=== PATIENT | female | born 1975 | race Caucasian/White ===

== ENCOUNTER → 2016-11-29 | Outpatient (CLI) | payer BC, OTHER ==
[~2016-11-29] MED LIST: 'PARAFON FORTE500 M1 PO; AMLODIPINE BES2.5 MG PO; AMOXIL500 MG PO; ANAPROX DS550 MG PO; ATIVAN1 MG PO; BACTRIM DS 8001 TA1 PO; CATAFLAM50 MG PO; CEPHALEXIN500 M1 PO; CIPRO250 MG PO; CIPRODEX 0.3%-7.5 ML OT; CIPROFLOXACIN500 MG PO; CLARITIN10 MG PO; DAYPRO600 M1 PO; FLEXERIL10 MG PO; FLONASE 0.05% 121 EA NAS; HYDROCODONE BIT1 T11 PO; HYDROCODONE BIT1 T20 PO; IBU800 MG PO; LOPRESSOR25 MG PO; MACROBID100 M1 PO; MEDROL DOSEPAK4 MG PO; MOTRIN800 MG PO; NAPROSYN500 MG PO; NORCO 5-325 TA1 EACH PO; OMEPRAZOLE20 M2 PO; Orphenadrine C100 MG PO; PEPCID20 MG PO; PERCOCET 325 MG1 TA2 PO; PHENERGAN25 M1 PO; PRILOSEC20 MG PO; PRINIVIL5 M1 PO; ROBAFEN AC PO; ROBAXIN500 MG PO; ROBAXIN750 MG PO; ROBITUSSIN AC 10 MG/ PO; SYNTHROID0.05 MG PO; SYNTHROID0.1 MG PO; Synthroid,Lev100 MCG PO; VIBRAMYCIN100 MG PO; VICODIN 5-3001 EACH PO; VICODIN 5/500 505 MG PO; VITAMIN B121000 MC1 PO; VITAMIN D50000 I3 PO; VOLTAREN50 M1 PO; WYMOX500 MG PO; ZANTAC150 MG PO; ZITHROMAX Z PA250 MG PO
== END | disposition home or self-care (01) ==
LOC: MRI 11:00
DX: M25.512 Pain in left shoulder (principal); G89.29 Other chronic pain

== ENCOUNTER → 2016-12-03 | Outpatient (CLI) | payer BC, OTHER | END | disposition home or self-care (01) | LOC: US 16:35 | DX: E01.0 Iodine-deficiency related diffuse (endemic) goiter (principal) ==

== ENCOUNTER → 2016-12-08 | Outpatient (CLI) | payer BC, OTHER ==
[2016-12-08 07:20] LABS: BASO # 0.1 10*3/uL (0.0-0.1); BASO % 1.1 % (0.0-1.0); EOS # 0.2 10*3/uL (0.0-0.4); EOS % 3.4 % (1.0-4.0); HEMATOCRIT 40.8 % (37.0-47.0); HEMOGLOBIN 13.5 g/dl (12.0-16.0); LYMPH # 2.5 10*3/uL (1.3-4.4); LYMPH % 44.1 % (27.0-41.0); MEAN CELL VOLUME 91.1 fl (81.0-99.0); MEAN CORPUSCULAR HGB 30.1 pg (27.0-31.0); MEAN CORPUSCULAR HGB CONC 33.1 g/dl (33.0-37.0); MEAN PLATELET VOLUME 10.3 fl (9.6-12.3); MONO # 0.5 10*3/uL (0.1-1.0); MONO % 8.8 % (3.0-9.0); NEUT # 2.4 10*3/uL (2.3-7.9); NEUT % 42.4 % (47.0-73.0); PLATELET COUNT AUTOMATED 269 10*3/uL (130-400); RED BLOOD COUNT 4.48 10*6/uL (4.10-5.10); RED CELL DISTRI WIDTH 12.4 % (0-14.5); WHITE BLOOD COUNT 5.6 10*3/uL (4.8-10.8)
[2016-12-08 08:05] LABS: ALBUMIN 3.7 gm/dl (3.1-4.5); ALKALINE PHOSPHATASE 78 U/L (45-117); BILIRUBIN, TOTAL 0.4 mg/dl (0.2-1.0); BUN 19 mg/dl (7-24); CARBON DIOXIDE 29 mmol/L (21-32); CHLORIDE 107 mmol/L (98-107); CHOLESTEROL 172 mg/dL (<200); EST GLOM FILT AFRICAN AMERICAN > 60 ml/min; GLUCOSE 91 mg/dL (65-99); HDL CHOLESTEROL 61 mg/dl (40-60); LDL CHOLESTEROL 95 mg/dL (9-159); POTASSIUM 4.1 mmol/L (3.5-5.1); SGOT/AST 15 IU/L (3-35); SGPT/ALT 19 U/L (12-78); SODIUM 143 mmol/L (136-145); T3 UPTAKE 37 % (31-39); THYROXINE (T4) TOTAL 9.2 ug/dl (4.8-13.9); TOTAL PROTEIN 7.3 gm/dL (6.4-8.2); TRIGLYCERIDES 81 mg/dl (<150); VLDL CHOLESTEROL 16 mg/dL (6-40)
[2016-12-08 08:41] LABS: VITAMIN D, 25-HYDROXY 26.8 ng/mL (30-100)
[2016-12-08 08:42] LABS: FOLIC ACID 13.54 ng/mL (>5.38)
== END | disposition home or self-care (01) ==
LOC: LAB 06:37
PROVIDERS: Internal Medicine
DX: I47.1 Supraventricular tachycardia (principal); I10 Essential (primary) hypertension; E53.8 Deficiency of other specified B group vitamins

== ENCOUNTER → 2017-05-15 | Outpatient (CLI) | payer OTHER | END | disposition home or self-care (01) | LOC: RAD 14:53 | DX: M25.511 Pain in right shoulder (principal) ==

== ENCOUNTER 2017-08-28 22:00 | Emergency (ER) | payer OTHER ==
[~2017-08-28] VITALS: Ht 180.3 cm; Wt 99.8 kg
[2017-08-28 23:09] LABS: BASO # 0.1 10*3/uL (0.0-0.1); BASO % 0.7 % (0.0-1.0); EOS # 0.2 10*3/uL (0.0-0.4); EOS % 3.6 % (1.0-4.0); HEMATOCRIT 37.9 % (37.0-47.0); LYMPH # 2.4 10*3/uL (1.3-4.4); LYMPH % 35.9 % (27.0-41.0); MEAN CELL VOLUME 92.2 fl (81.0-99.0); MEAN CORPUSCULAR HGB 31.6 pg (27.0-31.0); MEAN CORPUSCULAR HGB CONC 34.3 g/dl (33.0-37.0); MEAN PLATELET VOLUME 10.3 fl (9.6-12.3); MONO # 0.7 10*3/uL (0.1-1.0); MONO % 10.7 % (3.0-9.0); NEUT # 3.3 10*3/uL (2.3-7.9); NEUT % 48.8 % (47.0-73.0); PLATELET COUNT AUTOMATED 279 10*3/uL (130-400); RED BLOOD COUNT 4.11 10*6/uL (4.10-5.10); RED CELL DISTRI WIDTH 13.2 % (0-14.5); WHITE BLOOD COUNT 6.8 10*3/uL (4.8-10.8)
[2017-08-28 23:14] LABS: ALBUMIN 3.9 gm/dl (3.1-4.5); ALKALINE PHOSPHATASE 87 U/L (45-117); BUN 21 mg/dl (7-24); CHLORIDE 105 mmol/L (98-107); CREATININE 0.95 mg/dL (0.55-1.02); POTASSIUM 4.1 mmol/L (3.5-5.1); SGOT/AST 15 IU/L (3-35); SGPT/ALT 26 U/L (12-78); SODIUM 141 mmol/L (136-145); TOTAL PROTEIN 7.3 gm/dL (6.4-8.2)
[2017-08-28 23:15] LABS: TROPONIN I < 0.015 ng/ml (<0.045)
[2017-08-28 23:38] LABS: BILIRUBIN NEGATIVE (NEGATIVE); BLOOD NEGATIVE (NEGATIVE); CLARITY CLEAR (CLEAR); COLOR YELLOW (YELLOW); GLUCOSE NEGATIVE (NEGATIVE); KETONE NEGATIVE (NEGATIVE); LEUKO ESTERASE 2+ (NEGATIVE); NITRITE NEGATIVE (NEGATIVE); SPECIFIC GRAVITY <= 1.005 (1.005-1.030); UROBILINOGEN 0.2 E.U./dl (0.2-1.0)
[2017-08-28] MEDS ORDERED: KETOROLAC10 MG PO (23:41)
[2017-08-28 23:51] VITALS: BP 133/79
== END 2017-08-29 00:12 | disposition home or self-care (01) ==
LOC: ED 22:00
PROVIDERS: Nurse Practitioner
DX: R09.1 Pleurisy (principal); Z98.890 Other specified postprocedural states; Z90.710 Acquired absence of both cervix and uterus; Z79.899 Other long term (current) drug therapy

== ENCOUNTER → 2017-11-01 | Day surgery (SDC) | payer OTHER ==
[~2017-11-01] VITALS: Ht 180.3 cm; Wt 102.1 kg
[~2017-11-01] MED LIST changes: +KETOROLAC10 MG PO; +LINZESS145 MC1 PO; +REGLAN5 MG PO; +TYLENOL325 M1 PO
--- NOTE | ~2017-11-01 | O ---
[place], [place] OPERATIVE NOTE NAME: LEONA ARCHULETA UNIT #: [id number] ROOM: DOCTOR: BAKARI RODRIGUEZ MD BIRTHDATE: [birth year] DOS: 11/01/2017 GASTROENDOSCOPIC REPORT HISTORY OF PRESENT ILLNESS: A 42-year-old patient, who presented with chief complaint of concern about colonic screening with a young father with colonic carcinoma. PAST MEDICAL HISTORY: Status post hypothyroid history post-cholecystectomy. PAST SURGICAL HISTORY: Cardiac ablation, hysterectomy, cholecystectomy, and thyroid resection. FAMILY HISTORY: Father with colonic carcinoma and gastric carcinoma. SOCIAL HISTORY: Nonsmoker, rare alcohol consumer. PROCEDURE: Today's procedure part of investigation of dyspepsia and strong family history of colonic carcinoma and constipation for bowel movement once per week is EGD and colonoscopy. PREMEDICATION: Versed and Diprivan. SCOPE: Olympus forward-viewing gastroscope Q10 video. REPORT: After putting the patient in left lateral position and application of lubricant to the scope, the scope was introduced. Thereafter, under direct visualization, I advanced through the length of esophagus without difficulty. Esophagus, cervical, thoracic were distally carefully examined. Gastric pouch was entered. Bile reflux gastritis was noticed. This is a large volume of bile matter was suctioned out. Antrum was biopsied for H. pylori. Duodenal bulb, second and third part within normal limits. Scope was withdrawn along the lesser curvature. Air was suctioned out. The patient was extubated, tolerated procedure well. IMPRESSION: Bile reflux gastritis. Omeprazole 20 mg 1 every day, Reglan 2.5 mg half an hour before dinner, antireflux measures. PLAN AND DISCUSSION: I will proceed with colonoscopic evaluation for change in bowel habit to 1 BM per week. GASTROENDOSCOPIC REPORT The patient has presented with chief complaint of constipation. PROCEDURE: Today's procedure part of investigation is colonoscopy plus polypectomy x 2. [place], [place] OPERATIVE NOTE NAME: LEOAN ARCHULETA UNIT #: [id number] ROOM: DOCTOR: BAKARI RODRIGUEZ MD BIRTHDATE: [birth year] PREMEDICATION: Versed and Diprivan. SCOPE: Olympus folding colonoscope 10L video. REPORT: After putting the patient in left lateral position and application of lubricant to rectal pouch and digital examination, scope was introduced. Thereafter, under direct visualization, I advanced through the length of colon without difficulty. Base of the cecum explored. There is some retained stool in the ascending colon. Scope was gradually withdrawn back to the sigmoid colon. Two sessile polypoid lesion with piecemeal polypectomy removed. Air was suctioned out. The patient was extubated, tolerated procedure well. IMPRESSION: Sessile colonic polyp, sigmoid colon, status post piecemeal polypectomy. PLAN AND DISCUSSION: This patient has history of severe constipation. I am going try to see the etiology, which most likely has to do with chronic idiopathic constipation. I will start her on Linzess 72 mcg once a day, to see how she responds. If she does not, then we are going to elevate it to 145 mcg once a day, adjustment of diet with high fiber fruit diet. ACTIVITY: Ad terri. FOLLOWUP: Routinely with you in office, p.r.n. visit with us in GI Clinic. I thank you very much indeed for your kind referral. BAKARI RODRIGUEZ MD CM:OPRECORD:OPERATIVE NOTE [id number] [id number] CHARLA RODRIGUEZ MD 11/01/17 1457 interface
[2017-11-01 10:34] VITALS: BP 126/81
[2017-11-01 11:15] VITALS: BP 91/50
[2017-11-01 11:58] VITALS: BP 112/72
== END | disposition home or self-care (01) ==
LOC: SDC 10-11 08:07
DX: K63.5 Polyp of colon (principal); K29.50 Unspecified chronic gastritis without bleeding; Z80.0 Family history of malignant neoplasm of digestive organs; Z90.49 Acquired absence of other specified parts of digestive tract; Z90.710 Acquired absence of both cervix and uterus; E03.9 Hypothyroidism, unspecified; K59.04 Chronic idiopathic constipation; K21.9 Gastro-esophageal reflux disease without esophagitis; Z82.49 Family history of ischemic heart disease and other diseases of the circulatory system

== ENCOUNTER → 2017-12-09 | Outpatient (CLI) | payer OTHER ==
[2017-12-09 13:19] LABS: BASO % 0.7 % (0.0-1.0); EOS # 0.1 10*3/uL (0.0-0.4); EOS % 1.4 % (1.0-4.0); HEMATOCRIT 41.5 % (37.0-47.0); HEMOGLOBIN 14.1 g/dl (12.0-16.0); LYMPH # 1.7 10*3/uL (1.3-4.4); LYMPH % 29.6 % (27.0-41.0); MEAN CORPUSCULAR HGB 31.6 pg (27.0-31.0); MEAN PLATELET VOLUME 9.9 fl (9.6-12.3); MONO # 0.6 10*3/uL (0.1-1.0); NEUT # 3.4 10*3/uL (2.3-7.9); NEUT % 58.1 % (47.0-73.0); PLATELET COUNT AUTOMATED 297 10*3/uL (130-400); RED BLOOD COUNT 4.46 10*6/uL (4.10-5.10); RED CELL DISTRI WIDTH 12.5 % (0-14.5); WHITE BLOOD COUNT 5.8 10*3/uL (4.8-10.8)
[2017-12-09 13:47] LABS: ALBUMIN 4.2 gm/dl (3.1-4.5); ALKALINE PHOSPHATASE 80 U/L (45-117); BUN 17 mg/dl (7-24); CHLORIDE 105 mmol/L (98-107); CHOLESTEROL 183 mg/dL (<200); CREATININE 0.91 mg/dL (0.55-1.02); HDL CHOLESTEROL 73 mg/dl (40-60); LDL CHOLESTEROL 102 mg/dL (9-159); SGOT/AST 12 IU/L (3-35); SGPT/ALT 20 U/L (12-78); SODIUM 140 mmol/L (136-145); TOTAL PROTEIN 7.8 gm/dL (6.4-8.2); TRIGLYCERIDES 38 mg/dl (<150); VLDL CHOLESTEROL 8 mg/dL (6-40)
[2017-12-09 14:51] LABS: VITAMIN D, 25-HYDROXY 18.7 ng/mL (30-100)
== END | disposition home or self-care (01) ==
LOC: LAB 12:43
PROVIDERS: Internal Medicine
DX: I10 Essential (primary) hypertension (principal)

== ENCOUNTER → 2018-01-08 | Outpatient (CLI) | payer OTHER | END | disposition home or self-care (01) | LOC: RAD 13:26 | DX: M25.861 Other specified joint disorders, right knee (principal) ==

== ENCOUNTER → 2018-02-10 | Outpatient (CLI) | payer OTHER | END | disposition home or self-care (01) | LOC: MRI 10:00 | DX: M25.861 Other specified joint disorders, right knee (principal) ==

== ENCOUNTER → 2018-03-05 | Outpatient (CLI) | payer OTHER ==
--- NOTE | ~2018-03-05 | EKG ---
[place], [place] ELECTROCARDIOGRAM REPORT NAME: LEONA ARCHULETA UNIT #: [id number] ROOM: DOCTOR: EPIPHANY DRAFT REPORT BIRTHDATE: [birth year] [facility] Test Date: 2018-03-05 Test Time: 15:27:09 Pat Name: LEONA ARCHULETA Department: Room: Gender: F Tailman: : 1975 Requested By: CHARLA NDIAYE Order Number: [id number] Reading MD: Ho Sims MD Measurements Intervals [place] Rate: 82 P: 59 NM: 154 QRS: 10 QRSD: 87 T: -29 QT: 468 QTc: 547 Interpretive Statements Sinus rhythm LAE, consider biatrial enlargement Nonspecific T abnormalities, inferior leads Prolonged QT interval Baseline wander in lead(s) I,III,aVR,aVL,aVF,V1,V2,V3,V4,V5,V6 Electronically Signed On 03-05-2018 15:59:30 PDT by Ho Sims MD CM:EKGRPT:ELECTROCARDIOGRAM REPORT 1527 1559 CHARLA ACEVES DRAFT REPORT CHARLA NDIAYE MD
== END | disposition home or self-care (01) ==
LOC: CARD 15:15
DX: R07.9 Chest pain, unspecified (principal)

== ENCOUNTER → 2018-05-08 | Day surgery (SDC) | payer OTHER ==
[2018-05-06 09:48] LABS: BILIRUBIN NEGATIVE (NEGATIVE); BLOOD TRACE-INTACT (NEGATIVE); CLARITY SL CLOUDY (CLEAR); COLOR YELLOW (YELLOW); GLUCOSE NEGATIVE (NEGATIVE); KETONE NEGATIVE (NEGATIVE); LEUKO ESTERASE 2+ (NEGATIVE); NITRITE NEGATIVE (NEGATIVE); PH 5.5 (5.0-9.0); SPECIFIC GRAVITY 1.025 (1.005-1.030); UROBILINOGEN 0.2 E.U./dl (0.2-1.0)
[2018-05-06 09:56] LABS: BASO # 0.1 10*3/uL (0.0-0.1); EOS # 0.2 10*3/uL (0.0-0.4); EOS % 4.7 % (1.0-4.0); HEMATOCRIT 40.9 % (37.0-47.0); HEMOGLOBIN 13.6 g/dl (12.0-16.0); LYMPH # 1.3 10*3/uL (1.3-4.4); LYMPH % 26.3 % (27.0-41.0); MEAN CELL VOLUME 92.1 fl (81.0-99.0); MEAN CORPUSCULAR HGB 30.6 pg (27.0-31.0); MEAN CORPUSCULAR HGB CONC 33.3 g/dl (33.0-37.0); MEAN PLATELET VOLUME 10.2 fl (9.6-12.3); MONO # 0.5 10*3/uL (0.1-1.0); MONO % 10.4 % (3.0-9.0); NEUT # 2.8 10*3/uL (2.3-7.9); NEUT % 57.4 % (47.0-73.0); PLATELET COUNT AUTOMATED 284 10*3/uL (130-400); RED BLOOD COUNT 4.44 10*6/uL (4.10-5.10); RED CELL DISTRI WIDTH 12.3 % (0-14.5); WHITE BLOOD COUNT 4.9 10*3/uL (4.8-10.8)
[2018-05-06 10:27] LABS: BUN 19 mg/dl (7-24); CHLORIDE 106 mmol/L (98-107); POTASSIUM 3.8 mmol/L (3.5-5.1); SODIUM 140 mmol/L (136-145)
[2018-05-06 10:59] LABS: BACTERIA 3+; EPITHELIAL CELLS 30-40; WBC 51-100 wbc/hpf (0-5)
[~2018-05-08] VITALS: Ht 180.3 cm; Wt 102.1 kg
[2018-05-08] VITALS (9 sets, daily range): BP systolic 101–130; BP diastolic 50–82
[~2018-05-08] MED LIST changes: +XARE15TA PO; +ZOFRAN 4 MG ED2 TAB PO
--- NOTE | ~2018-05-08 | O ---
[place], [place] OPERATIVE NOTE NAME: LEONA ARCHULETA [facility] #: [id number] UNIT #: [id number] ROOM: DOCTOR: ANT NYE DO BIRTHDATE: [birth year] DOS: 05/08/2018 PREOPERATIVE DIAGNOSIS: Right knee posterior loose body. 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 OPERATIVE PROCEDURE: Right knee arthroscopy with debridement of the lateral meniscus and chondroplasty of the lateral femoral condyle and the patella and excision of lateral patellar plica. SURGEON: Ant Nye DO. ACCOUNT INFORMATION CLERK: BENJAMIN Nix and Jovani. ANESTHESIA: GRANT Marie, general LMA intubation. INDICATIONS: The patient is a 43-year-old female with a history of pain and disability about the right knee, unrelieved with conservative care. MRI indicated a loose body bony in nature and was present behind the posterior cruciate ligament. The risks and benefits of the procedure were explained to the patient preoperatively. Preoperative labs and x-rays were obtained. DESCRIPTION OF PROCEDURE: The right knee was marked in the holding room. The patient was brought to the operative suite. The patient was placed supine on the operative table. General anesthetic with LMA intubation was performed. The timeout was performed. The right lower extremity was placed in a leg perez. Right lower extremity was prepped and draped in the usual orthopedic fashion. The area about the medial and lateral parapatellar portals were injected with Marcaine 0.5% with epinephrine. The lateral portal was created using #11 blade followed by blunt trocar and cannula. Medial portal was created using a spinal needle followed by a #11 blade and a blunt trocar. The knee was evaluated in a systematic fashion with the camera laterally. The medial compartment was noted to be intact to probing and visualization with no evidence of meniscus tear or chondral injury. The loose body was attempted to be displaced or it could be grasped, but was unable to be visualized. The notch was identified and evaluated. The anterior cruciate ligament was noted to be intact to probing and anterior drawer test. The lateral compartment was identified and evaluated. There was noted to be a lateral meniscus tear from the posterior half of the meniscus. This was debrided using handheld instrumentation and a full radius resector to remove any remaining debris. There was grade 1 chondromalacia about the lateral femoral condyle. This was gently smoothed using the ArthroCare wand. Again, the loose body was attempted to be displaced and grasped, but this was unsuccessful. The loose body could not be visualized. [place], [place] OPERATIVE NOTE NAME: LEONA ARCHULETA UNIT #: [id number] ROOM: DOCTOR: ANT NYE DO BIRTHDATE: [birth year] Patellofemoral joint was identified and evaluated. There was noted to be a grade 2 chondromalacia of the patella as well as the femoral notch. This was gently debrided using the full radius resector and the Arthrocare wand. There was a lateral patellar plica and this was debrided using the handheld instrumentation and the ArthroCare wand. The instrumentation was switched using the arthroscopy camera medially and instrumentation laterally. All compartments were again identified and evaluated. The medial compartment remained without evidence of pathology. Lateral compartment, grade 1 chondromalacia of the femoral condyle and further debridement was performed of the lateral meniscus. Again, attempts were made to dislodge and grasped the loose body, which appeared to be posterior from the MRI, but this was unsuccessful. Patellofemoral joint was identified and further debridement was performed about the type 2 chondromalacia of the patella. With no further repairable or debridable pathology was present, the knee was copiously irrigated with remainder of lactated Ringer's with epinephrine. The instrumentation was removed. The portals were expressed of any excess fluid. The portals were closed with 3-0 nylon. The knee was injected with Marcaine 0.5% with epinephrine. Xeroform, 4 x 4s, cast padding, ABDs, and WILFRID completed the dressing. The anesthetic was reversed. The patient was extubated and taken to recovery room in satisfactory condition. Sponge and needle count correct. ESTIMATED BLOOD LOSS: None. SPECIMENS: None. DRAINS: None. PACKING: None. COMPLICATIONS: None. FINDINGS: 1. Grade 2 chondromalacia patellofemoral joint. 2. Lateral patellar plica. 3. Lateral meniscus tear. 4. Chondromalacia of the lateral femoral condyle, grade 1. 5. Posterior bony loose body ____. [place], [place] OPERATIVE NOTE NAME: LEONA ARCHULETA UNIT #: [id number] ROOM: DOCTOR: ANT NYE DO BIRTHDATE: [birth year] ANT NYE DO CM:OPRECORD:OPERATIVE NOTE 0912 1059 ANT NYE DO 05/08/18 1431 interface
--- NOTE | ~2018-05-08 | EKG ---
[place], [place] ELECTROCARDIOGRAM REPORT NAME: LEONA ARCHULETA UNIT #: [id number] ROOM: DOCTOR: KETAN DRAFT REPORT BIRTHDATE: [birth year] [facility] Test Date: 2018-05-06 Test Time: 11:08:45 Pat Name: LEONA ARCHULETA Department: Room: Gender: F Form Grader: : 1975 Requested By: ANT WHYTE Order Number: [id number] Reading MD: Measurements Intervals [place] Rate: 87 P: 51 NM: 161 QRS: 10 QRSD: 98 T: 19 QT: 365 QTc: 439 Interpretive Statements Sinus rhythm Consider right atrial enlargement Borderline T abnormalities, anterior leads Compared to ECG 03/05/2018 15:27:09 Prolonged QT interval no longer present T-wave abnormality still present CM:EKGRPT:ELECTROCARDIOGRAM REPORT 1108 0811 ANT ROJAS DRAFT REPORT ANT WHYTE DO
== END | disposition home or self-care (01) ==
LOC: SDC 05-01 10:15
PROVIDERS: Orthopaedic Surgery
DX: S83.281A Other tear of lateral meniscus, current injury, right knee, initial encounter (principal); M94.261 Chondromalacia, right knee; M67.51 Plica syndrome, right knee; K21.9 Gastro-esophageal reflux disease without esophagitis; E07.9 Disorder of thyroid, unspecified; E66.09 Other obesity due to excess calories; Z90.710 Acquired absence of both cervix and uterus; Z90.49 Acquired absence of other specified parts of digestive tract; Z87.19 Personal history of other diseases of the digestive system; Z98.890 Other specified postprocedural states; Z80.0 Family history of malignant neoplasm of digestive organs; Z79.899 Other long term (current) drug therapy; Z68.31 Body mass index [BMI] 31.0-31.9, adult; X58.XXXA Exposure to other specified factors, initial encounter; Y93.89 Activity, other specified; Y92.89 Other specified places as the place of occurrence of the external cause; Y99.8 Other external cause status

== ENCOUNTER 2018-05-15 12:56 | Inpatient (IN) | payer OTHER ==
[~2018-05-15] VITALS: Ht 180.3 cm; Wt 101.7 kg
--- NOTE | ~2018-05-15 | PR ---
[place], [place] PROGRESS NOTE NAME: LEONA ARCHULETA UNIT #: [id number] ROOM: 512 DOCTOR: ZAIDA FREDERICK MD BIRTHDATE: [birth year] DOS: 05/16/2018 SUBJECTIVE: The patient is still having cramping pains in her right leg, otherwise, no new complaints, no increasing shortness of breath. OBJECTIVE: VITAL SIGNS: Blood pressure 109/66, heart rate 81 beats per minute, breathing 20 times per minute, temperature 98 degrees Fahrenheit. GENERAL APPEARANCE: The patient is alert and oriented x 3, in no visible distress. HEENT AND NECK: Exam within normal limits. CARDIOVASCULAR SYSTEM: Heart rate is regular in rate and rhythm. S1 and S2 normally audible. LUNGS: Clear to auscultation. ABDOMEN: Soft, nontender. No obvious organomegaly. Bowel sounds are present. EXTREMITIES: Without significant cyanosis or edema. Some tenderness in the right calf. IMPRESSION: 1. The patient with acute deep vein thrombosis in the right calf after she had right knee arthroscopy on 05/08/2018, more than a week ago. She has deep venous thrombosis involving the right gastrocnemius and popliteal veins and now she is ambulating with the help of crutches. A repeat stat venous Dopplers was performed on the right leg, but results are still not available. I wanted to compare it to patient's deep venous thrombosis from yesterday to see if it is progressing. In that case, she will be started on IV heparin. 2. Right knee arthritis, status post arthroscopy, Dr. Nye following. 3. History of supraventricular tachycardia, status post electrophysiological studies and ablation. 4. Hypothyroidism, treated with levothyroxine. 5. Nausea and vomiting, which is chronic, treated and controlled with metoclopramide. 6. Gastroesophageal reflux disease and esophagitis, asymptomatic with Omeprazole. [place], [place] PROGRESS NOTE NAME: LEONA ARCHULETA UNIT #: [id number] ROOM: 512 DOCTOR: ZAIDA FREDERICK MD BIRTHDATE: [birth year] ZAIDA FREDERICK MD CM:PNTRANS 29 17 ZAIDA FREDERICK MD 05/16/181918 interface
--- NOTE | ~2018-05-15 | PR ---
[place], [place] PROGRESS NOTE [id number] UNIT #: [id number] ROOM: 512 DOCTOR: ZAIDA FREDERICK MD BIRTHDATE: [birth year] DOS: 05/17/2018 SUBJECTIVE: The patient is feeling well, still has some pains in her right calf. OBJECTIVE: VITAL SIGNS: Blood pressure 103/69, heart rate of 80 beats per minute, breathing normally, afebrile. GENERAL APPEARANCE: The patient is alert and oriented x 3, in no visible distress. HEENT AND NECK: Exam within normal limits. CARDIOVASCULAR SYSTEM: Heart rate is regular in rate and rhythm. S1 and S2 normally audible. LUNGS: Clear to auscultation. ABDOMEN: Soft, nontender. No obvious organomegaly. Bowel sounds are present. EXTREMITIES: Without significant cyanosis or edema. IMPRESSION: 1. Right leg deep venous thrombosis with occlusion of the gastrocnemius vein and partial occlusion of the right popliteal vein, not getting any worse on repeat Doppler today, so she will be continued on Xarelto. 2. Right knee arthritis, status post arthroscopy on 05/08/2018. 3. Hypothyroidism, treated with levothyroxine. 4. Nausea, vomiting controlled with metoclopramide. 5. Gastroesophageal reflux disease and esophagitis, asymptomatic with omeprazole. ZAIDA FREDERICK MD CM:PNTRANS 184 18 ZAIDA FREDERICK MD 05/17/182119 interface
--- NOTE | ~2018-05-15 | DS ---
[place], [place] DISCHARGE SUMMARY NAME: LEONA ARCHULETA UNIT #: [id number] ROOM: 512 DOCTOR: ZAIDA FREDERICK MD BIRTHDATE: [birth year] DOS: 05/18/2018 DISCHARGE DIAGNOSES: 1. Acute deep vein thrombosis involving the right gastrocnemius vein and incomplete occlusion of the right popliteal vein. 2. Right knee arthroscopy by Dr. Nye on 05/08/2018. 3. Right knee arthritis. 4. Hypothyroidism. 5. Chronic nausea, vomiting controlled with metoclopramide. 6. Gastroesophageal reflux disease and esophagitis. 7. History of supraventricular tachycardia treated with electrophysiological studies and ablation. 8. Tension type headaches. HOSPITAL COURSE: The patient presently admitted for acute DVT of the right leg as mentioned above and treated with anticoagulation with Xarelto. The high dose of Xarelto will be continued for 21 days as recommended, 15 mg twice a day and then reduced by Dr. Mcgee when she follows up with her next week. Hypothyroidism, treated and replaced with supplements. History of supraventricular tachycardia, now is asymptomatic after ablation. Gastroesophageal reflux disease and esophagitis, asymptomatic with omeprazole. Chronic nausea, vomiting, treated with metoclopramide. Normal serum electrolytes. LABORATORY DATA: Normal CBC. DISCHARGE MANAGEMENT: Tylenol 1000 mg every 8 hours as needed for pain, 200 mg of Colace daily, metoclopramide 5 mg before meals, omeprazole 20 mg daily, Xarelto 15 mg twice a day to complete 20 days, then dose needs to be reduced, levothyroxine 100 mcg daily. Follow up with Dr. Mcgee in a week's time. [place], [place] DISCHARGE SUMMARY NAME: LEONA ARCHULETA UNIT #: [id number] ROOM: 512 DOCTOR: ZAIDA FREDERICK MD BIRTHDATE: [birth year] ZAIDA FREDERICK MD CM:DISCHARG 0 ZAIDA FREDERICK MD 05/19/18211 interface
--- NOTE | ~2018-05-15 | WRIGHTHP ---
[place], [place] PATIENT HISTORY AND PHYSICAL EXAM NAME: LEONA ARCHULETA [facility] #: [id number] UNIT #: [id number] ROOM: 512 DOCTOR: ZAIDA FREDERICK MD BIRTHDATE: [birth year] DOS: 05/15/2018 HISTORY OF PRESENT ILLNESS: A 43-year-old female with a past medical history of: 1. Right knee arthroscopy by Dr. Nye on 05/08/2018. 2. History of recurrent supraventricular tachycardia for which the patient underwent electrophysiological studies and ablation. 3. Hypothyroidism. 4. Tension type headaches. The patient presented to [facility] with swelling and cramps in the right leg and was found to have acute deep vein thrombosis in the right gastrocnemius vein and some nonocclusive thrombus extending into the popliteal vein. The patient was started on Xarelto and admitted to [facility]. No chest pain, no shortness of breath, no GI or urinary symptoms. CT angiogram was negative. SYSTEMS REVIEW: RESPIRATORY: No increasing shortness of breath. GASTROINTESTINAL: No nausea, vomiting, diarrhea or constipation. CARDIOVASCULAR: No chest pains or palpitations. FAMILY HISTORY: Noncontributory. ALLERGIES: No known drug allergies. Unspecified NUT and FISH allergy. HOME MEDICATIONS: Metoclopramide, omeprazole, levothyroxine. PHYSICAL EXAMINATION: GENERAL: Alert and oriented x 3, in no visible distress. HEENT AND NECK: Extraocular movements are intact. Sclerae are anicteric. Oral mucosa is moist and clean. No obvious facial weakness. Neck is supple without any lymphadenopathy. No thyromegaly. No JVD. No carotid arterial bruits. LUNGS: Clear to auscultation. No wheezing. No rhonchi. CARDIOVASCULAR SYSTEM: Heart rate is regular in rate and rhythm. S1 and S2 normally audible. No significant murmur or any other abnormal cardiac sounds. ABDOMEN: Soft, nontender. No obvious organomegaly. Bowel sounds are present. No obvious herniation. EXTREMITIES: Pain and swelling in the right calf. CENTRAL NERVOUS SYSTEM: Alert and oriented x 3. Cranial nerves II-XII are intact. Speech is normal. The patient is able to move all extremities. Normal muscle strength. Deep tendon reflexes are equal on both sides. Plantars were downgoing. LABORATORY DATA: CT angiogram results were normal. D-dimer slightly elevated, acute DVT of the right gastrocnemius and popliteal veins as mentioned above. IMPRESSION: 1. Acute deep venous thrombosis of the right gastrocnemius and popliteal veins as mentioned above. The patient already started on anticoagulation with Xarelto [place], [place] PATIENT HISTORY AND PHYSICAL EXAM [facility]: [id number] #: [id number] ROOM: [facility] DOCTOR: ZAIDA FREDERICK MD BIRTHDATE: [birth year] and she is on limited weightbearing on her right leg and using crutches after right knee arthroscopy. 2. Acute right knee arthritis and the patient is status post right knee arthroscopy by Dr. Nye who has been consulted to follow the patient. 3. History of supraventricular tachycardia. The patient is status post electrophysiological studies and ablation with controlled heart rates. 4. The patient has hypothyroidism, to be continued on levothyroxine. 5. Chronic nausea and vomiting, treated with metoclopramide. 6. Gastroesophageal reflux disease and esophagitis, asymptomatic with omeprazole, which has been continued. ZAIDA FREDERICK MD CM:HISPHYS:PATIENT HISTORY AND PHYSICAL EXAMINATION 02 23 ZAIDA FREDERICK MD 05/15/182024 interface
--- NOTE | ~2018-05-15 | EKG ---
[place], [place] ELECTROCARDIOGRAM REPORT NAME: LEONA ARCHULETA UNIT #: [id number] ROOM: 512 DOCTOR: KETAN DRAFT REPORT BIRTHDATE: [birth year] [facility] Test Date: 2018-05-15 Test Time: 15:55:34 Pat Name: LEONA ARCHULETA Department: Room: 512 1 Gender: F Steel Chipper: [place] : 1975 Requested By: TAMMIE MENCHACA Order Number: [id number] Reading MD: Ho Sims MD Measurements Intervals [place] Rate: 82 P: 57 NC: 164 QRS: 11 QRSD: 104 T: 13 QT: 430 QTc: 503 Interpretive Statements Sinus rhythm LAE, consider biatrial enlargement Borderline T abnormalities, anterior leads Borderline prolonged QT interval Compared to ECG 05/06/2018 11:08:45 T-wave abnormality still present No significant change Electronically Signed On 05-15-2018 18:41:16 PDT by Ho Sims MD CM:EKGRPT:ELECTROCARDIOGRAM REPORT 1555 1841 TAMMIE ROJAS DRAFT REPORT TAMMIE MENCHACA DO
[~2018-05-15 12:56] MED LIST changes: -XARE15TA PO
[2018-05-15 15:19] VITALS: BP 123/83
[2018-05-15 15:38] LABS: BASO # 0.1 10*3/uL (0.0-0.1); EOS # 0.4 10*3/uL (0.0-0.4); EOS % 5.2 % (1.0-4.0); HEMATOCRIT 40.7 % (37.0-47.0); HEMOGLOBIN 13.6 g/dl (12.0-16.0); LYMPH # 1.7 10*3/uL (1.3-4.4); LYMPH % 23.6 % (27.0-41.0); MEAN CELL VOLUME 92.9 fl (81.0-99.0); MEAN CORPUSCULAR HGB 31.1 pg (27.0-31.0); MEAN CORPUSCULAR HGB CONC 33.4 g/dl (33.0-37.0); MEAN PLATELET VOLUME 11.1 fl (9.6-12.3); MONO # 0.8 10*3/uL (0.1-1.0); MONO % 10.8 % (3.0-9.0); NEUT # 4.3 10*3/uL (2.3-7.9); PLATELET COUNT AUTOMATED 285 10*3/uL (130-400); RED BLOOD COUNT 4.38 10*6/uL (4.10-5.10); RED CELL DISTRI WIDTH 12.1 % (0-14.5); WHITE BLOOD COUNT 7.3 10*3/uL (4.8-10.8)
[2018-05-15 16:45] LABS: ACT PARTIAL THROMBO TIME 24.7 SECONDS (20.8-31.5)
[2018-05-15 16:52] LABS: ALBUMIN 3.7 gm/dl (3.1-4.5); ALKALINE PHOSPHATASE 84 U/L (45-117); BUN 19 mg/dl (7-24); CHLORIDE 105 mmol/L (98-107); CREATININE 0.79 mg/dL (0.55-1.02); POTASSIUM 3.5 mmol/L (3.5-5.1); SGOT/AST 11 IU/L (3-35); SGPT/ALT 18 U/L (12-78); SODIUM 140 mmol/L (136-145); TOTAL PROTEIN 7.3 gm/dL (6.4-8.2)
[2018-05-15 16:57] LABS: TROPONIN I < 0.015 ng/ml (<0.045)
[2018-05-15 20:00] VITALS: BP 117/71
[2018-05-16] VITALS: BP 106/68
[2018-05-16 06:53] LABS: BASO # 0.1 10*3/uL (0.0-0.1); BASO % 1.1 % (0.0-1.0); EOS # 0.4 10*3/uL (0.0-0.4); EOS % 7.1 % (1.0-4.0); HEMATOCRIT 40.2 % (37.0-47.0); HEMOGLOBIN 13.2 g/dl (12.0-16.0); LYMPH # 1.7 10*3/uL (1.3-4.4); LYMPH % 30.6 % (27.0-41.0); MEAN CELL VOLUME 92.4 fl (81.0-99.0); MEAN CORPUSCULAR HGB 30.3 pg (27.0-31.0); MEAN CORPUSCULAR HGB CONC 32.8 g/dl (33.0-37.0); MEAN PLATELET VOLUME 10.3 fl (9.6-12.3); MONO # 0.7 10*3/uL (0.1-1.0); MONO % 12.8 % (3.0-9.0); NEUT # 2.6 10*3/uL (2.3-7.9); NEUT % 48.2 % (47.0-73.0); PLATELET COUNT AUTOMATED 274 10*3/uL (130-400); RED BLOOD COUNT 4.35 10*6/uL (4.10-5.10); RED CELL DISTRI WIDTH 12.1 % (0-14.5); WHITE BLOOD COUNT 5.4 10*3/uL (4.8-10.8)
[2018-05-16 07:32] LABS: BUN 14 mg/dl (7-24); CHLORIDE 105 mmol/L (98-107); CREATININE 0.74 mg/dL (0.55-1.02); POTASSIUM 3.8 mmol/L (3.5-5.1); SODIUM 139 mmol/L (136-145)
[2018-05-16 08:00] VITALS: BP 118/74
[2018-05-16 12:00] VITALS: BP 109/77
[2018-05-16 16:00] VITALS: BP 109/66
[2018-05-16 16:11] LABS: ANTICARDIOLIPIN AB, IGG, QN <9 GPL U/mL (0-14); ANTICARDIOLIPIN AB, IGM, QN <9 MPL U/mL (0-12); CARDIOLIPIN AB IGA 161836 <9 APL U/mL (0-11)
[2018-05-16 20:00] VITALS: BP 113/73
[2018-05-17] VITALS: BP 111/65
[2018-05-17 01:07] LABS: LUPUS DRVVT 37.2 sec (0.0-47.0); LUPUS REFLEX INTERPRETATION Comment: (.); PTT-LA 32.4 sec (0.0-51.9)
[2018-05-17 02:09] LABS: PROTEIN S, FREE 94 % (57-157); PROTEIN S, TOTAL 82 % (60-150)
[2018-05-17 06:35] LABS: BASO # 0.1 10*3/uL (0.0-0.1); BASO % 1.1 % (0.0-1.0); EOS # 0.3 10*3/uL (0.0-0.4); EOS % 4.7 % (1.0-4.0); HEMATOCRIT 40.2 % (37.0-47.0); HEMOGLOBIN 13.3 g/dl (12.0-16.0); LYMPH # 1.7 10*3/uL (1.3-4.4); LYMPH % 30.6 % (27.0-41.0); MEAN CELL VOLUME 92.6 fl (81.0-99.0); MEAN CORPUSCULAR HGB 30.6 pg (27.0-31.0); MEAN CORPUSCULAR HGB CONC 33.1 g/dl (33.0-37.0); MEAN PLATELET VOLUME 9.9 fl (9.6-12.3); MONO # 0.7 10*3/uL (0.1-1.0); MONO % 12.4 % (3.0-9.0); NEUT # 2.8 10*3/uL (2.3-7.9); PLATELET COUNT AUTOMATED 265 10*3/uL (130-400); RED BLOOD COUNT 4.34 10*6/uL (4.10-5.10); WHITE BLOOD COUNT 5.5 10*3/uL (4.8-10.8)
[2018-05-17 06:46] LABS: BUN 16 mg/dl (7-24); CHLORIDE 107 mmol/L (98-107); CREATININE 0.77 mg/dL (0.55-1.02); POTASSIUM 3.9 mmol/L (3.5-5.1); SODIUM 139 mmol/L (136-145)
[2018-05-17 08:00] VITALS: BP 110/74
[2018-05-17 12:00] VITALS: BP 105/67
[2018-05-17 16:00] VITALS: BP 103/69
[2018-05-17 20:00] VITALS: BP 116/73
[2018-05-18] VITALS: BP 106/79
[2018-05-18 07:07] LABS: BASO # 0.1 10*3/uL (0.0-0.1); BASO % 0.9 % (0.0-1.0); EOS # 0.2 10*3/uL (0.0-0.4); EOS % 4.4 % (1.0-4.0); HEMATOCRIT 39.4 % (37.0-47.0); HEMOGLOBIN 12.9 g/dl (12.0-16.0); LYMPH # 1.7 10*3/uL (1.3-4.4); LYMPH % 30.3 % (27.0-41.0); MEAN CELL VOLUME 92.9 fl (81.0-99.0); MEAN CORPUSCULAR HGB 30.4 pg (27.0-31.0); MEAN CORPUSCULAR HGB CONC 32.7 g/dl (33.0-37.0); MEAN PLATELET VOLUME 10.3 fl (9.6-12.3); MONO # 0.6 10*3/uL (0.1-1.0); MONO % 11.8 % (3.0-9.0); NEUT # 2.9 10*3/uL (2.3-7.9); NEUT % 52.4 % (47.0-73.0); PLATELET COUNT AUTOMATED 281 10*3/uL (130-400); RED BLOOD COUNT 4.24 10*6/uL (4.10-5.10); WHITE BLOOD COUNT 5.4 10*3/uL (4.8-10.8)
[2018-05-18 07:23] LABS: BUN 14 mg/dl (7-24); CHLORIDE 106 mmol/L (98-107); POTASSIUM 4.1 mmol/L (3.5-5.1); SODIUM 141 mmol/L (136-145)
[2018-05-18 08:00] VITALS: BP 110/78
[2018-05-18 12:00] VITALS: BP 117/76
[2018-05-18 16:00] VITALS: BP 109/75
[2018-05-18] MEDS ORDERED: XARE15TA PO (19:09)
== END 2018-05-18 19:58 | disposition home or self-care (01) | DRG 301 ==
LOC: ORTHO 12:56 → 5E 15:04
PROVIDERS: Internal Medicine
DX: I82.431 Acute embolism and thrombosis of right popliteal vein (principal); M17.11 Unilateral primary osteoarthritis, right knee; I82.4Z1 Acute embolism and thrombosis of unspecified deep veins of right distal lower extremity; K21.0 Gastro-esophageal reflux disease with esophagitis; E03.9 Hypothyroidism, unspecified; R11.2 Nausea with vomiting, unspecified; G44.209 Tension-type headache, unspecified, not intractable; Z79.899 Other long term (current) drug therapy

== ENCOUNTER → 2018-05-22 | Outpatient (CLI) | payer OTHER ==
[~2018-05-22] MED LIST changes: +XARE15TA PO
== END | disposition home or self-care (01) ==
LOC: RAD 15:16
DX: M25.561 Pain in right knee (principal)

== ENCOUNTER 2018-07-04 15:12 | Emergency (ER) | payer OTHER ==
[2018-07-04 15:49] LABS: BASO # 0.1 10*3/uL (0.0-0.1); BASO % 0.7 % (0.0-1.0); EOS # 0.1 10*3/uL (0.0-0.4); EOS % 1.7 % (1.0-4.0); HEMATOCRIT 40.5 % (37.0-47.0); HEMOGLOBIN 13.5 g/dl (12.0-16.0); LYMPH # 1.7 10*3/uL (1.3-4.4); LYMPH % 22.1 % (27.0-41.0); MEAN CELL VOLUME 92.7 fl (81.0-99.0); MEAN CORPUSCULAR HGB 30.9 pg (27.0-31.0); MEAN CORPUSCULAR HGB CONC 33.3 g/dl (33.0-37.0); MEAN PLATELET VOLUME 10.2 fl (9.6-12.3); MONO # 0.6 10*3/uL (0.1-1.0); MONO % 8.1 % (3.0-9.0); NEUT # 5.1 10*3/uL (2.3-7.9); NEUT % 67.1 % (47.0-73.0); PLATELET COUNT AUTOMATED 294 10*3/uL (130-400); RED BLOOD COUNT 4.37 10*6/uL (4.10-5.10); RED CELL DISTRI WIDTH 12.1 % (0-14.5); WHITE BLOOD COUNT 7.7 10*3/uL (4.8-10.8)
[2018-07-04 15:58] LABS: ACT PARTIAL THROMBO TIME 25.3 SECONDS (20.8-31.5)
[2018-07-04 16:04] LABS: ALBUMIN 3.8 gm/dl (3.1-4.5); ALKALINE PHOSPHATASE 91 U/L (45-117); BUN 25 mg/dl (7-24); CHLORIDE 106 mmol/L (98-107); CREATININE 0.89 mg/dL (0.55-1.02); POTASSIUM 3.7 mmol/L (3.5-5.1); SGOT/AST 5 IU/L (3-35); SGPT/ALT 17 U/L (12-78); SODIUM 140 mmol/L (136-145); TOTAL PROTEIN 7.6 gm/dL (6.4-8.2)
[2018-07-04] MEDS ORDERED: NAPROSYN500 MG PO (16:40)
[2018-07-04 16:42] VITALS: BP 118/80
== END 2018-07-04 16:54 | disposition home or self-care (01) ==
LOC: ED 15:12
PROVIDERS: Nurse Practitioner Family
DX: M25.561 Pain in right knee (principal); Z91.013 Allergy to seafood; Z91.018 Allergy to other foods; Z79.899 Other long term (current) drug therapy; Z90.710 Acquired absence of both cervix and uterus

== ENCOUNTER → 2018-07-07 | Outpatient (CLI) | payer OTHER | END | disposition home or self-care (01) | LOC: RAD 16:09 | DX: M25.561 Pain in right knee (principal); Z98.890 Other specified postprocedural states ==

== ENCOUNTER → 2018-07-16 | Outpatient (CLI) | payer OTHER | END | disposition home or self-care (01) | LOC: MRI 01:56 | DX: M17.11 Unilateral primary osteoarthritis, right knee (principal); M23.41 Loose body in knee, right knee; M25.461 Effusion, right knee ==

== ENCOUNTER → 2018-10-02 | Outpatient (CLI) | payer OTHER ==
[~2018-10-02] MED LIST changes: +LEVOFLOXACIN250 M2 PO; +PROTONIX40 MG PO; +ZOFRAN4 MG PO
== END | disposition home or self-care (01) ==
LOC: MAMMO 10:20
DX: Z12.31 Encounter for screening mammogram for malignant neoplasm of breast (principal)

== ENCOUNTER → 2019-02-13 | Outpatient (CLI) | payer OTHER | END | disposition home or self-care (01) | LOC: ORTHO 00:55 | DX: M25.562 Pain in left knee (principal) ==

== ENCOUNTER → 2019-03-18 | Outpatient (CLI) | payer OTHER | END | disposition home or self-care (01) | LOC: MRI 03-02 10:00 | DX: S83.207A Unspecified tear of unspecified meniscus, current injury, left knee, initial encounter (principal); G89.29 Other chronic pain; M25.462 Effusion, left knee; R20.0 Anesthesia of skin; R53.1 Weakness; X58.XXXA Exposure to other specified factors, initial encounter; Y93.89 Activity, other specified; Y92.89 Other specified places as the place of occurrence of the external cause; Y99.8 Other external cause status ==

== ENCOUNTER → 2019-03-24 | Outpatient (CLI) | payer OTHER | END | disposition home or self-care (01) | LOC: US 09:34 | DX: R60.0 Localized edema (principal); M79.89 Other specified soft tissue disorders ==

== ENCOUNTER → 2019-04-02 | Outpatient (CLI) | payer OTHER | END | disposition home or self-care (01) | LOC: ORTHO 01:45 | DX: M17.11 Unilateral primary osteoarthritis, right knee (principal); M23.41 Loose body in knee, right knee; M79.89 Other specified soft tissue disorders; M25.461 Effusion, right knee ==

== ENCOUNTER → 2019-04-06 | Outpatient (CLI) | payer OTHER ==
[2019-04-06 11:56] LABS: BASO % 0.5 % (0.0-1.0); EOS # 0.1 10*3/uL (0.0-0.4); EOS % 1.3 % (1.0-4.0); HEMATOCRIT 43.8 % (37.0-47.0); HEMOGLOBIN 14.8 g/dl (12.0-16.0); LYMPH # 2.6 10*3/uL (1.3-4.4); LYMPH % 33.6 % (27.0-41.0); MEAN CORPUSCULAR HGB 31.4 pg (27.0-31.0); MEAN CORPUSCULAR HGB CONC 33.8 g/dl (33.0-37.0); MONO # 0.7 10*3/uL (0.1-1.0); MONO % 8.5 % (3.0-9.0); NEUT # 4.3 10*3/uL (2.3-7.9); NEUT % 55.8 % (47.0-73.0); PLATELET COUNT AUTOMATED 301 10*3/uL (130-400); RED BLOOD COUNT 4.71 10*6/uL (4.10-5.10); RED CELL DISTRI WIDTH 12.8 % (0-14.5); WHITE BLOOD COUNT 7.6 10*3/uL (4.8-10.8)
[2019-04-06 12:10] LABS: BUN 20 mg/dl (7-24); CHLORIDE 105 mmol/L (98-107); CREATININE 0.82 mg/dL (0.55-1.02); POTASSIUM 3.8 mmol/L (3.5-5.1); SODIUM 138 mmol/L (136-145)
== END | disposition home or self-care (01) ==
LOC: LAB 11:36
PROVIDERS: Internal Medicine
DX: M25.50 Pain in unspecified joint (principal)

== ENCOUNTER → 2019-07-01 | Outpatient (CLI) | payer OTHER ==
[2019-07-01 12:55] LABS: HEMATOCRIT 43.4 % (37.0-47.0); HEMOGLOBIN 14.4 g/dl (12.0-16.0); MEAN CELL VOLUME 93.9 fl (81.0-99.0); MEAN CORPUSCULAR HGB 31.2 pg (27.0-31.0); MEAN CORPUSCULAR HGB CONC 33.2 g/dl (33.0-37.0); MEAN PLATELET VOLUME 10.3 fl (9.6-12.3); PLATELET COUNT AUTOMATED 260 10*3/uL (130-400); RED BLOOD COUNT 4.62 10*6/uL (4.10-5.10); RED CELL DISTRI WIDTH 12.4 % (0-14.5); WHITE BLOOD COUNT 5.3 10*3/uL (4.8-10.8)
[2019-07-01 13:13] LABS: ATYPICAL LYMPHS 1 % (0-0); BASOPHILS 1 % (0-1); PLATELET SUFFICIENCY NORMAL (NORMAL); TOTAL CELLS COUNTED 100 #CELLS
== END | disposition home or self-care (01) ==
LOC: LAB 12:26
PROVIDERS: Internal Medicine
DX: J06.9 Acute upper respiratory infection, unspecified (principal); R53.81 Other malaise; R06.02 Shortness of breath

== ENCOUNTER 2019-07-23 15:51 | Emergency (ER) | payer OTHER ==
[~2019-07-23] VITALS: Ht 180.3 cm; Wt 104.3 kg
[2019-07-23 15:54] VITALS: BP 130/78
[2019-07-23 16:49] LABS: BASO # 0.1 10*3/uL (0.0-0.1); BASO % 0.5 % (0.0-1.0); EOS # 0.1 10*3/uL (0.0-0.4); EOS % 1.1 % (1.0-4.0); HEMATOCRIT 40.1 % (37.0-47.0); HEMOGLOBIN 13.3 g/dl (12.0-16.0); LYMPH # 1.6 10*3/uL (1.3-4.4); LYMPH % 16.4 % (27.0-41.0); MEAN CELL VOLUME 94.1 fl (81.0-99.0); MEAN CORPUSCULAR HGB 31.2 pg (27.0-31.0); MEAN CORPUSCULAR HGB CONC 33.2 g/dl (33.0-37.0); MONO # 0.8 10*3/uL (0.1-1.0); NEUT # 7.3 10*3/uL (2.3-7.9); NEUT % 73.8 % (47.0-73.0); PLATELET COUNT AUTOMATED 305 10*3/uL (130-400); RED BLOOD COUNT 4.26 10*6/uL (4.10-5.10); RED CELL DISTRI WIDTH 12.5 % (0-14.5); WHITE BLOOD COUNT 9.9 10*3/uL (4.8-10.8)
[2019-07-23 16:56] LABS: BUN 19 mg/dl (7-24); CHLORIDE 106 mmol/L (98-107); CREATININE 0.99 mg/dL (0.55-1.02); POTASSIUM 3.6 mmol/L (3.5-5.1); SODIUM 138 mmol/L (136-145)
[2019-07-23 17:09] LABS: ACT PARTIAL THROMBO TIME 26.5 SECONDS (20.0-32.1); INTERNATIONAL NORM RATIO 0.9 (2.0-3.5)
== END 2019-07-23 17:54 | disposition home or self-care (01) ==
LOC: ED 15:51
PROVIDERS: Emergency Medicine
DX: M25.461 Effusion, right knee (principal); Z98.890 Other specified postprocedural states; Z90.710 Acquired absence of both cervix and uterus; Z91.013 Allergy to seafood; Z79.899 Other long term (current) drug therapy

== ENCOUNTER → 2019-08-04 | Outpatient (CLI) | payer OTHER | END | disposition home or self-care (01) | LOC: CT 11:26 | DX: J32.0 Chronic maxillary sinusitis (principal) ==

== ENCOUNTER → 2019-09-30 | Outpatient (CLI) | payer OTHER | END | disposition home or self-care (01) | LOC: CT 15:23 | DX: J32.0 Chronic maxillary sinusitis (principal); J34.2 Deviated nasal septum; J34.1 Cyst and mucocele of nose and nasal sinus ==

== ENCOUNTER 2019-10-31 19:12 | Emergency (ER) | payer OTHER ==
[~2019-10-31] VITALS: Ht 180.3 cm; Wt 104.3 kg
[2019-10-31 19:31] VITALS: BP 128/94
[2019-10-31] MEDS ORDERED: VIBRAMYCIN100 MG PO (19:37)
== END 2019-10-31 19:44 | disposition home or self-care (01) ==
LOC: ED 19:12
DX: S40.862A Insect bite (nonvenomous) of left upper arm, initial encounter (principal); Z91.013 Allergy to seafood; Z91.018 Allergy to other foods; W57.XXXA Bitten or stung by nonvenomous insect and other nonvenomous arthropods, initial encounter; Y93.89 Activity, other specified; Y92.89 Other specified places as the place of occurrence of the external cause; Y99.8 Other external cause status

== ENCOUNTER 2019-11-27 20:12 | Emergency (ER) | payer OTHER ==
[~2019-11-27] VITALS: Ht 180.3 cm; Wt 104.3 kg
[2019-11-27 23:00] VITALS: BP 126/78
== END 2019-11-27 23:03 | disposition home or self-care (01) ==
LOC: ED 20:12
DX: S93.402A Sprain of unspecified ligament of left ankle, initial encounter (principal); K21.9 Gastro-esophageal reflux disease without esophagitis; E03.9 Hypothyroidism, unspecified; Z90.710 Acquired absence of both cervix and uterus; Z91.018 Allergy to other foods; Z91.013 Allergy to seafood; Z79.899 Other long term (current) drug therapy; Z79.2 Long term (current) use of antibiotics; X50.9XXA Other and unspecified overexertion or strenuous movements or postures, initial encounter; Y93.89 Activity, other specified; Y92.89 Other specified places as the place of occurrence of the external cause; Y99.8 Other external cause status

== ENCOUNTER → 2020-02-12 | Outpatient (CLI) | payer OTHER ==
[2020-02-13 07:09] LABS: HEPATITIS B SURFACE AB Reactive (.)
[2020-02-13 17:06] LABS: MUMPS ANTIBODIES, IGG <9.0 AU/mL (Immune >10.9); RUBEOLA AB IGG >300.0 AU/mL (Immune >16.4); VARICELLA-ZOSTER IGG <135 index (Immune >165)
== END | disposition home or self-care (01) ==
LOC: RAD 09:00 → LAB 09:16
PROVIDERS: Internal Medicine
DX: Z11.59 Encounter for screening for other viral diseases (principal); Z02.0 Encounter for examination for admission to educational institution

== ENCOUNTER → 2020-03-04 | Outpatient (CLI) | payer OTHER ==
[2020-03-04 11:56] VITALS: BP 120/47
== END | disposition home or self-care (01) ==
LOC: INJECTION 11:00
DX: M85.89 Other specified disorders of bone density and structure, multiple sites (principal); K21.9 Gastro-esophageal reflux disease without esophagitis; E03.9 Hypothyroidism, unspecified; Z90.710 Acquired absence of both cervix and uterus; Z90.49 Acquired absence of other specified parts of digestive tract

== ENCOUNTER 2020-04-01 19:41 | Emergency (ER) | payer OTHER ==
[~2020-04-01] VITALS: Ht 180.3 cm; Wt 104.3 kg
[2020-04-01 19:46] VITALS: BP 125/85
[2020-04-01] MEDS ORDERED: DICLOFENAC SOD75 MG PO (21:36)
== END 2020-04-01 21:50 | disposition home or self-care (01) ==
LOC: ED 19:41
DX: S96.912A Strain of unspecified muscle and tendon at ankle and foot level, left foot, initial encounter (principal); M23.91 Unspecified internal derangement of right knee; K21.9 Gastro-esophageal reflux disease without esophagitis; E03.9 Hypothyroidism, unspecified; Z79.899 Other long term (current) drug therapy; X58.XXXA Exposure to other specified factors, initial encounter; Z90.710 Acquired absence of both cervix and uterus; Y93.89 Activity, other specified; Y92.89 Other specified places as the place of occurrence of the external cause; Y99.8 Other external cause status

== ENCOUNTER → 2020-04-28 | Outpatient (CLI) | payer OTHER ==
[~2020-04-28] MED LIST changes: +DICLOFENAC SOD75 MG PO
== END | disposition home or self-care (01) ==
LOC: COVID19 15:19
PROVIDERS: ATTEND Internal Medicine
DX: Z20.828 Contact with and (suspected) exposure to other viral communicable diseases (principal)

== ENCOUNTER 2020-05-25 07:22 | Emergency (ER) | payer OTHER ==
[~2020-05-25] VITALS: Ht 180.3 cm; Wt 106.6 kg
[2020-05-25 07:27] VITALS: BP 113/83
[2020-05-25 07:46] LABS: BASO # 0.1 10*3/uL (0.0-0.1); EOS # 0.2 10*3/uL (0.0-0.4); HEMATOCRIT 43.5 % (37.0-47.0); LYMPH # 1.9 10*3/uL (1.3-4.4); LYMPH % 30.8 % (27.0-41.0); MEAN CELL VOLUME 91.2 fl (81.0-99.0); MEAN CORPUSCULAR HGB 30.2 pg (27.0-31.0); MEAN CORPUSCULAR HGB CONC 33.1 g/dl (33.0-37.0); MEAN PLATELET VOLUME 9.7 fl (9.6-12.3); MONO # 0.7 10*3/uL (0.1-1.0); MONO % 10.9 % (3.0-9.0); NEUT # 3.4 10*3/uL (2.3-7.9); NEUT % 54.1 % (47.0-73.0); PLATELET COUNT AUTOMATED 320 10*3/uL (130-400); RED BLOOD COUNT 4.77 10*6/uL (4.10-5.10); RED CELL DISTRI WIDTH 12.3 % (0-14.5); WHITE BLOOD COUNT 6.2 10*3/uL (4.8-10.8)
[2020-05-25 08:04] LABS: ALBUMIN 3.8 gm/dl (3.1-4.5); ALKALINE PHOSPHATASE 70 U/L (45-117); BUN 15 mg/dl (7-24); CHLORIDE 109 mmol/L (98-107); CREATININE 0.88 mg/dL (0.55-1.02); LIPASE 86 U/L (73-393); POTASSIUM 3.9 mmol/L (3.5-5.1); SGOT/AST 10 IU/L (3-35); SGPT/ALT 14 U/L (12-78); SODIUM 140 mmol/L (136-145)
[2020-05-25 08:04] LABS: BILIRUBIN Negative (Negative); BLOOD Trace-Lysed (Negative); CLARITY Clear (Clear); COLOR Yellow (Yellow); GLUCOSE Negative (Negative); KETONE Negative (Negative); LEUKO ESTERASE 3+ (Negative); NITRITE Negative (Negative)
[2020-05-25 08:13] LABS: RBC 0-2 rbc/hpf (0-2)
[2020-05-25] MEDS ORDERED: KEFLEX500 M1 PO (09:07)
== END 2020-05-25 09:22 | disposition home or self-care (01) ==
LOC: ED 07:22
PROVIDERS: Emergency Medicine
DX: N39.0 Urinary tract infection, site not specified (principal); K21.9 Gastro-esophageal reflux disease without esophagitis; Z90.710 Acquired absence of both cervix and uterus; Z79.899 Other long term (current) drug therapy

== ENCOUNTER 2020-06-23 12:53 | Emergency (ER) | payer OTHER ==
[~2020-06-23 12:53] MED LIST changes: +KEFLEX500 M1 PO
[2020-06-23 12:57] VITALS: BP 123/81
[2020-06-23] MEDS ORDERED: PROAIR HFA8.5 GM INH (13:56)
[2020-06-23] MEDS ORDERED: AMOXICILLIN500 M2 PO (13:56)
[2020-06-24] MEDS ORDERED: ZITHROMAX250 MG PO (22:17)
[2020-06-24] MEDS ORDERED: ZOFRAN4 MG PO (22:33)
== END 2020-06-23 13:59 | disposition home or self-care (01) ==
LOC: ED 12:53
DX: U07.1 COVID-19 (principal); B34.9 Viral infection, unspecified; J18.9 Pneumonia, unspecified organism; Z91.018 Allergy to other foods; Z79.899 Other long term (current) drug therapy

== ENCOUNTER 2020-06-24 21:37 | Emergency (ER) | payer OTHER ==
[~2020-06-24] VITALS: Ht 170.1 cm; Wt 113.4 kg
[~2020-06-24 21:37] MED LIST changes: +AMOXICILLIN500 M2 PO; +PROAIR HFA8.5 GM INH
[2020-06-24 21:45] VITALS: BP 101/54
[2020-06-24] MEDS ORDERED: ZITHROMAX250 MG PO (22:17)
[2020-06-24] MEDS ORDERED: ZOFRAN4 MG PO (22:33)
== END 2020-06-24 23:00 | disposition home or self-care (01) ==
LOC: ED 21:37
DX: B34.9 Viral infection, unspecified (principal); U07.1 COVID-19; Z79.899 Other long term (current) drug therapy

== ENCOUNTER → 2020-07-18 | Outpatient (CLI) | payer OTHER ==
[~2020-07-18] MED LIST changes: +ZITHROMAX250 MG PO
== END | disposition home or self-care (01) ==
LOC: MAMMO 10:25
PROVIDERS: ATTEND Internal Medicine
DX: Z12.31 Encounter for screening mammogram for malignant neoplasm of breast (principal)

== ENCOUNTER → 2020-08-30 | Outpatient (CLI) | payer OTHER | END | disposition home or self-care (01) | LOC: CARD 14:47 | PROVIDERS: ATTEND Internal Medicine | DX: M47.817 Spondylosis without myelopathy or radiculopathy, lumbosacral region (principal); R06.02 Shortness of breath; M54.5 Low back pain ==

== ENCOUNTER → 2020-09-18 | Outpatient (CLI) | payer OTHER ==
[2020-09-18 16:20] LABS: THYROXINE (T4) TOTAL 11.2 ug/dl (4.8-13.9)
[2020-09-18 16:25] LABS: THYROID STIM HORMONE (HS) 2.11 uIU/ml (0.358-4.75)
== END | disposition home or self-care (01) ==
LOC: LAB 15:21
PROVIDERS: ATTEND Internal Medicine
DX: L65.9 Nonscarring hair loss, unspecified (principal)

== ENCOUNTER → 2021-06-27 | Outpatient (CLI) | payer OTHER ==
[2021-06-27 12:09] LABS: BASO # 0.1 10*3/uL (0.0-0.1); BASO % 1.3 % (0.0-1.0); EOS # 0.2 10*3/uL (0.0-0.4); EOS % 4.1 % (1.0-4.0); HEMATOCRIT 42.6 % (37.0-47.0); LYMPH # 1.4 10*3/uL (1.3-4.4); LYMPH % 31.1 % (27.0-41.0); MEAN CELL VOLUME 92.2 fl (81.0-99.0); MEAN CORPUSCULAR HGB 30.7 pg (27.0-31.0); MEAN CORPUSCULAR HGB CONC 33.3 g/dl (33.0-37.0); MEAN PLATELET VOLUME 10.1 fl (9.6-12.3); MONO # 0.4 10*3/uL (0.1-1.0); MONO % 9.3 % (3.0-9.0); NEUT # 2.5 10*3/uL (2.3-7.9); PLATELET COUNT AUTOMATED 316 10*3/uL (130-400); RED BLOOD COUNT 4.62 10*6/uL (4.10-5.10); RED CELL DISTRI WIDTH 12.3 % (0-14.5); WHITE BLOOD COUNT 4.6 10*3/uL (4.8-10.8)
[2021-06-27 12:31] LABS: ALBUMIN 3.7 gm/dl (3.1-4.5); BUN 15 mg/dl (7-24); CHLORIDE 109 mmol/L (98-107); POTASSIUM 3.9 mmol/L (3.5-5.1); SODIUM 140 mmol/L (136-145)
[2021-06-27 12:40] LABS: ALKALINE PHOSPHATASE 99 U/L (45-117); CHOLESTEROL 201 mg/dL (<200); CREATININE 0.76 mg/dL (0.55-1.02); LDL CHOLESTEROL 121 mg/dL (9-159); SGOT/AST 11 IU/L (3-35); SGPT/ALT 20 U/L (12-78); TOTAL PROTEIN 7.7 gm/dL (6.4-8.2); TRIGLYCERIDES 46 mg/dl (<150)
== END | disposition home or self-care (01) ==
LOC: LAB 11:26
PROVIDERS: ATTEND Internal Medicine
DX: Z13.1 Encounter for screening for diabetes mellitus (principal); R53.81 Other malaise; R79.89 Other specified abnormal findings of blood chemistry; D51.9 Vitamin B12 deficiency anemia, unspecified; D52.9 Folate deficiency anemia, unspecified; E55.9 Vitamin D deficiency, unspecified; E03.9 Hypothyroidism, unspecified; Z13.0 Encounter for screening for diseases of the blood and blood-forming organs and certain disorders involving the immune mechanism; Z13.21 Encounter for screening for nutritional disorder; Z13.220 Encounter for screening for lipoid disorders; Z13.228 Encounter for screening for other metabolic disorders; Z13.6 Encounter for screening for cardiovascular disorders; Z13.89 Encounter for screening for other disorder

== ENCOUNTER → 2021-12-28 | Day surgery (SDC) | payer OTHER ==
[~2021-12-28] VITALS: Ht 180.3 cm; Wt 104.3 kg
[~2021-12-28] MED LIST changes: +CARAFATE1 G1 PO; +PRILOSEC20 M1 PO
[2021-12-28 08:00] VITALS: BP 121/80
[2021-12-28 08:41] VITALS: BP 103/53
[2021-12-28 08:56] VITALS: BP 114/65
[2021-12-28 09:08] VITALS: BP 110/65
== END | disposition home or self-care (01) ==
LOC: SDC 12-25 11:00
PROVIDERS: ATTEND Surgery
DX: Z09 Encounter for follow-up examination after completed treatment for conditions other than malignant neoplasm (principal); K21.9 Gastro-esophageal reflux disease without esophagitis; E03.9 Hypothyroidism, unspecified; Z86.010 Personal history of colon polyps; Z80.0 Family history of malignant neoplasm of digestive organs; K29.50 Unspecified chronic gastritis without bleeding; K57.30 Diverticulosis of large intestine without perforation or abscess without bleeding; Z90.710 Acquired absence of both cervix and uterus; Z98.890 Other specified postprocedural states

== ENCOUNTER → 2022-03-05 | Outpatient (CLI) | payer OTHER | END | disposition home or self-care (01) | LOC: MAMMO 03-01 07:30 | PROVIDERS: ATTEND Internal Medicine | DX: Z12.31 Encounter for screening mammogram for malignant neoplasm of breast (principal) ==

== ENCOUNTER → 2022-04-26 | Outpatient (CLI) | payer OTHER ==
[2022-04-26 15:06] LABS: BASO # 0.1 10*3/uL (0.0-0.1); EOS # 0.3 10*3/uL (0.0-0.4); EOS % 6.3 % (1.0-4.0); HEMATOCRIT 45.1 % (37.0-47.0); LYMPH # 1.5 10*3/uL (1.3-4.4); LYMPH % 29.7 % (27.0-41.0); MEAN CORPUSCULAR HGB 30.6 pg (27.0-31.0); MEAN CORPUSCULAR HGB CONC 33.3 g/dl (33.0-37.0); MONO # 0.5 10*3/uL (0.1-1.0); MONO % 9.6 % (3.0-9.0); NEUT # 2.6 10*3/uL (2.3-7.9); NEUT % 53.2 % (47.0-73.0); PLATELET COUNT AUTOMATED 315 10*3/uL (130-400); RED CELL DISTRI WIDTH 12.1 % (0-14.5); WHITE BLOOD COUNT 4.9 10*3/uL (4.8-10.8)
[2022-04-26 15:23] LABS: ALKALINE PHOSPHATASE 94 U/L (45-117); BUN 18 mg/dl (7-24); CHLORIDE 107 mmol/L (98-107); CHOLESTEROL 190 mg/dL (<200); CREATININE 0.89 mg/dL (0.55-1.02); FREE T4 1.14 ng/dl (0.76-1.46); LDL CHOLESTEROL 111 mg/dL (9-159); POTASSIUM 3.7 mmol/L (3.5-5.1); SGOT/AST 11 IU/L (3-35); SGPT/ALT 19 U/L (12-78); SODIUM 140 mmol/L (136-145); TOTAL PROTEIN 8.1 gm/dL (6.4-8.2); TRIGLYCERIDES 83 mg/dl (<150)
[2022-04-26 16:01] LABS: VITAMIN D, 25-HYDROXY 22.4 ng/mL (30-100)
== END | disposition home or self-care (01) ==
LOC: LAB 14:25
PROVIDERS: ATTEND Internal Medicine
DX: Z13.0 Encounter for screening for diseases of the blood and blood-forming organs and certain disorders involving the immune mechanism (principal); Z13.1 Encounter for screening for diabetes mellitus; Z13.21 Encounter for screening for nutritional disorder; Z13.220 Encounter for screening for lipoid disorders; Z13.29 Encounter for screening for other suspected endocrine disorder; Z13.6 Encounter for screening for cardiovascular disorders; Z13.89 Encounter for screening for other disorder; Z13.9 Encounter for screening, unspecified; Z13.228 Encounter for screening for other metabolic disorders; E03.9 Hypothyroidism, unspecified; E55.9 Vitamin D deficiency, unspecified; R73.09 Other abnormal glucose

== ENCOUNTER 2022-08-17 20:26 | Emergency (ER) | payer OTHER ==
[~2022-08-17] VITALS: Wt 106.6 kg
[2022-08-17] MEDS ORDERED: NEURONTIN300 MG PO (20:37)
[2022-08-17 20:39] VITALS: BP 119/71
[2022-08-17] MEDS ORDERED: IBUPROFEN600 MG PO (22:08)
== END 2022-08-17 23:11 | disposition home or self-care (01) ==
LOC: ED 20:26
DX: M79.621 Pain in right upper arm (principal); Z98.890 Other specified postprocedural states; Z88.1 Allergy status to other antibiotic agents; F10.90 Alcohol use, unspecified, uncomplicated; Z90.710 Acquired absence of both cervix and uterus; Z90.49 Acquired absence of other specified parts of digestive tract; M25.521 Pain in right elbow; M25.511 Pain in right shoulder

== ENCOUNTER → 2022-08-18 | Outpatient (CLI) | payer OTHER ==
[~2022-08-18] MED LIST changes: +IBUPROFEN600 MG PO; +NEURONTIN300 MG PO
== END | disposition home or self-care (01) ==
LOC: US 09:50
PROVIDERS: ATTEND Physician Assistant
DX: M79.621 Pain in right upper arm (principal); R60.9 Edema, unspecified

== ENCOUNTER → 2022-08-25 | Outpatient (CLI) | payer OTHER ==
[2022-08-25 08:25] LABS: BILIRUBIN Negative (Negative); BLOOD Negative (Negative); CLARITY Clear (Clear); COLOR Yellow (Yellow); GLUCOSE Negative (Negative); KETONE Negative (Negative); LEUKO ESTERASE 2+ (Negative); NITRITE Negative (Negative); PH 5.5 (4.5-8.0); SPECIFIC GRAVITY 1.015 (1.001-1.030); UROBILINOGEN 0.2 E.U./dl (0.0-1.0)
[2022-08-25 08:26] LABS: BASO # 0.1 10*3/uL (0.0-0.1); BASO % 0.8 % (0.0-1.0); EOS # 0.3 10*3/uL (0.0-0.4); EOS % 3.5 % (1.0-4.0); HEMATOCRIT 40.2 % (37.0-47.0); LYMPH # 2.4 10*3/uL (1.3-4.4); LYMPH % 33.6 % (27.0-41.0); MEAN CELL VOLUME 91.4 fl (81.0-99.0); MEAN CORPUSCULAR HGB 30.7 pg (27.0-31.0); MEAN CORPUSCULAR HGB CONC 33.6 g/dl (33.0-37.0); MEAN PLATELET VOLUME 10.2 fl (9.6-12.3); MONO # 0.7 10*3/uL (0.1-1.0); MONO % 9.7 % (3.0-9.0); NEUT # 3.8 10*3/uL (2.3-7.9); NEUT % 52.3 % (47.0-73.0); PLATELET COUNT AUTOMATED 275 10*3/uL (130-400); RED CELL DISTRI WIDTH 12.4 % (0-14.5); WHITE BLOOD COUNT 7.2 10*3/uL (4.8-10.8)
[2022-08-25 08:50] LABS: ALKALINE PHOSPHATASE 82 U/L (46-116); BUN 14 mg/dl (9-23); CHLORIDE 101 mmol/L (98-107); CHOLESTEROL 186 mg/dL (<200); FREE T4 1.29 ng/dl (0.89-1.76); LDL CHOLESTEROL 115 mg/dL (9-159); SGPT/ALT 18 U/L (10-49); THYROID STIM HORMONE (HS) 3.195 uIU/ml (0.550-4.780); TOTAL PROTEIN 7.3 gm/dL (6.0-8.0); TRIGLYCERIDES 77 mg/dl (<150)
[2022-08-25 09:03] LABS: BACTERIA 2+; MUCOUS TRACE
[2022-08-25 10:34] LABS: VITAMIN D, 25-HYDROXY 18.4 ng/mL (30-100)
== END | disposition home or self-care (01) ==
LOC: LAB 07:50
PROVIDERS: ATTEND Internal Medicine
DX: Z13.0 Encounter for screening for diseases of the blood and blood-forming organs and certain disorders involving the immune mechanism (principal); Z13.29 Encounter for screening for other suspected endocrine disorder; Z13.89 Encounter for screening for other disorder; Z13.820 Encounter for screening for osteoporosis; Z13.1 Encounter for screening for diabetes mellitus; Z13.6 Encounter for screening for cardiovascular disorders; E55.9 Vitamin D deficiency, unspecified

== ENCOUNTER → 2022-11-17 | Outpatient (CLI) | payer OTHER | END | disposition home or self-care (01) | LOC: RAD 07:40 | PROVIDERS: ATTEND Internal Medicine | DX: M25.521 Pain in right elbow (principal) ==

== ENCOUNTER 2022-12-05 22:57 | Emergency (ER) | payer OTHER ==
[2022-12-05 23:11] VITALS: BP 140/74
[2022-12-05] MEDS ORDERED: ZOLOFT50 MG PO (23:12)
[2022-12-05] MEDS ORDERED: CARAFATE1 G1 PO (23:13)
[2022-12-06 00:30] LABS: BASO % 0.5 % (0.0-1.0); EOS # 0.1 10*3/uL (0.0-0.4); EOS % 1.8 % (1.0-4.0); HEMATOCRIT 41.1 % (37.0-47.0); LYMPH # 1.7 10*3/uL (1.3-4.4); LYMPH % 22.3 % (27.0-41.0); MEAN CELL VOLUME 91.7 fl (81.0-99.0); MEAN CORPUSCULAR HGB CONC 33.8 g/dl (33.0-37.0); MONO # 0.6 10*3/uL (0.1-1.0); MONO % 7.9 % (3.0-9.0); NEUT # 5.1 10*3/uL (2.3-7.9); NEUT % 67.1 % (47.0-73.0); PLATELET COUNT AUTOMATED 294 10*3/uL (130-400); RED BLOOD COUNT 4.48 10*6/uL (4.10-5.10); RED CELL DISTRI WIDTH 12.2 % (0-14.5); WHITE BLOOD COUNT 7.6 10*3/uL (4.8-10.8)
[2022-12-06 00:39] LABS: BUN 15 mg/dl (9-23); CHLORIDE 107 mmol/L (98-107); POTASSIUM 3.7 mmol/L (3.4-5.1); URIC ACID 4.3 mg/dL (3.1-7.8)
[2022-12-06] MEDS ORDERED: MEDROL DOSEPAK4 MG PO (02:50)
== END 2022-12-06 02:53 | disposition home or self-care (01) ==
LOC: ED 22:57
PROVIDERS: Emergency Medicine
DX: M77.52 Other enthesopathy of left foot and ankle (principal); Z90.710 Acquired absence of both cervix and uterus; Z90.49 Acquired absence of other specified parts of digestive tract; Z98.890 Other specified postprocedural states; K21.9 Gastro-esophageal reflux disease without esophagitis; I34.1 Nonrheumatic mitral (valve) prolapse

== ENCOUNTER → 2022-12-25 | Outpatient (CLI) | payer OTHER ==
[~2022-12-25] MED LIST changes: +ZOLOFT50 MG PO
== END | disposition home or self-care (01) ==
LOC: MRI 00:30
PROVIDERS: ATTEND Orthopaedic Surgery
DX: M65.872 Other synovitis and tenosynovitis, left ankle and foot (principal); M19.072 Primary osteoarthritis, left ankle and foot; M76.72 Peroneal tendinitis, left leg; M72.2 Plantar fascial fibromatosis; R22.42 Localized swelling, mass and lump, left lower limb

== ENCOUNTER 2023-02-26 05:07 | Inpatient (IN) | payer OTHER ==
[2023-02-26] VITALS (10 sets, daily range): BP systolic 105–151; BP diastolic 63–89
[~2023-02-26] VITALS: Ht 180.3 cm; Wt 109.3 kg
[2023-02-26 06:04] LABS: BASO # 0.1 10*3/uL (0.0-0.1); BASO % 0.3 % (0.0-1.0); EOS # 0.2 10*3/uL (0.0-0.4); EOS % 1.1 % (1.0-4.0); HEMATOCRIT 41.8 % (37.0-47.0); LYMPH # 1.8 10*3/uL (1.3-4.4); LYMPH % 12.2 % (27.0-41.0); MEAN CELL VOLUME 93.5 fl (81.0-99.0); MEAN CORPUSCULAR HGB 31.5 pg (27.0-31.0); MEAN CORPUSCULAR HGB CONC 33.7 g/dl (33.0-37.0); MEAN PLATELET VOLUME 10.1 fl (9.6-12.3); MONO # 1.1 10*3/uL (0.1-1.0); MONO % 7.3 % (3.0-9.0); NEUT # 11.6 10*3/uL (2.3-7.9); NEUT % 77.8 % (47.0-73.0); PLATELET COUNT AUTOMATED 307 10*3/uL (130-400); RED BLOOD COUNT 4.47 10*6/uL (4.10-5.10); RED CELL DISTRI WIDTH 12.2 % (0-14.5); WHITE BLOOD COUNT 14.9 10*3/uL (4.8-10.8)
[2023-02-26 06:38] LABS: ALKALINE PHOSPHATASE 88 U/L (46-116); BUN 17 mg/dl (9-23); CHLORIDE 101 mmol/L (98-107); LIPASE 28 U/L (12-53); POTASSIUM 3.6 mmol/L (3.4-5.1); SGPT/ALT 12 U/L (10-49); TOTAL PROTEIN 7.5 gm/dL (6.0-8.0)
[2023-02-26] MEDS ORDERED: PROTONIX40 MG PO (07:41)
[2023-02-26] MEDS ORDERED: CELECOXIB200 MG PO (07:42)
[2023-02-26] MEDS ORDERED: CARAFATE1 G1 PO (07:42)
[2023-02-26] MEDS ORDERED: ONDANSETRON HYDR4 M1 PO (15:08)
[2023-02-26] MEDS ORDERED: HYDROCODONE-AC1 EAC1 PO (15:08)
[2023-02-26] MEDS ORDERED: COLACE100 MG PO (15:08)
[2023-02-27] VITALS: BP 112/71
[2023-02-27 05:21] LABS: BUN 9 mg/dl (9-23); CHLORIDE 107 mmol/L (98-107); POTASSIUM 3.8 mmol/L (3.4-5.1)
[2023-02-27 06:26] LABS: BASO % 0.1 % (0.0-1.0); LYMPH # 0.7 10*3/uL (1.3-4.4); LYMPH % 9.7 % (27.0-41.0); MEAN CELL VOLUME 95.4 fl (81.0-99.0); MEAN CORPUSCULAR HGB 31.5 pg (27.0-31.0); MEAN CORPUSCULAR HGB CONC 33.1 g/dl (33.0-37.0); MEAN PLATELET VOLUME 10.6 fl (9.6-12.3); MONO # 0.2 10*3/uL (0.1-1.0); MONO % 2.2 % (3.0-9.0); NEUT # 6.5 10*3/uL (2.3-7.9); NEUT % 87.7 % (47.0-73.0); PLATELET COUNT AUTOMATED 290 10*3/uL (130-400); RED BLOOD COUNT 4.09 10*6/uL (4.10-5.10); RED CELL DISTRI WIDTH 12.3 % (0-14.5); WHITE BLOOD COUNT 7.4 10*3/uL (4.8-10.8)
[2023-02-27 08:00] VITALS: BP 113/68
[2023-02-27] MEDS ORDERED: HYDROCODONE-AC1 EACH PO (08:42)
[2023-02-27 12:00] VITALS: BP 128/78
[2023-02-27 16:00] VITALS: BP 104/51
[2023-02-27 20:00] VITALS: BP 119/68
[2023-02-28] VITALS: BP 106/63
[2023-02-28 04:08] LABS: BASO % 0.3 % (0.0-1.0); EOS % 0.3 % (1.0-4.0); HEMATOCRIT 35.9 % (37.0-47.0); LYMPH # 2.7 10*3/uL (1.3-4.4); LYMPH % 29.4 % (27.0-41.0); MEAN CELL VOLUME 93.2 fl (81.0-99.0); MEAN CORPUSCULAR HGB 31.4 pg (27.0-31.0); MEAN CORPUSCULAR HGB CONC 33.7 g/dl (33.0-37.0); MONO # 0.8 10*3/uL (0.1-1.0); MONO % 9.1 % (3.0-9.0); NEUT # 5.5 10*3/uL (2.3-7.9); NEUT % 60.7 % (47.0-73.0); PLATELET COUNT AUTOMATED 266 10*3/uL (130-400); RED BLOOD COUNT 3.85 10*6/uL (4.10-5.10); RED CELL DISTRI WIDTH 12.5 % (0-14.5); WHITE BLOOD COUNT 9.1 10*3/uL (4.8-10.8)
[2023-02-28 04:32] LABS: BUN 15 mg/dl (9-23); CHLORIDE 106 mmol/L (98-107); POTASSIUM 3.3 mmol/L (3.4-5.1)
[2023-02-28 08:00] VITALS: BP 129/77
[2023-02-28] MEDS ORDERED: AZITHROMYCIN500 M2 PO (09:34)
[2023-02-28 12:00] VITALS: BP 124/78
== END 2023-02-28 14:26 | disposition home or self-care (01) | DRG 341 ==
LOC: ED 05:07 → 5E 06:47 → EDHOLD 06:47 → 5E 11:10
PROVIDERS: Internal Medicine; ADMIT Internal Medicine; ATTEND Internal Medicine
PROC: 0DTJ4ZZ Resection of Appendix, Percutaneous Endoscopic Approach (ICD-10-PCS; principal; 2023-02-26)
PROC: 3E0T3BZ Introduction of Anesthetic Agent into Peripheral Nerves and Plexi, Percutaneous Approach (ICD-10-PCS; 2023-02-26)
PROC: 3E0T33Z Introduction of Anti-inflammatory into Peripheral Nerves and Plexi, Percutaneous Approach (ICD-10-PCS; 2023-02-26)
DX: K35.80 Unspecified acute appendicitis (principal); J18.9 Pneumonia, unspecified organism; I47.1 Supraventricular tachycardia; E11.9 Type 2 diabetes mellitus without complications; Z96.651 Presence of right artificial knee joint; E03.9 Hypothyroidism, unspecified; D72.829 Elevated white blood cell count, unspecified; E66.9 Obesity, unspecified; G44.209 Tension-type headache, unspecified, not intractable; K21.9 Gastro-esophageal reflux disease without esophagitis; K21.00 Gastro-esophageal reflux disease with esophagitis, without bleeding; Z86.718 Personal history of other venous thrombosis and embolism; Z82.49 Family history of ischemic heart disease and other diseases of the circulatory system; Z90.710 Acquired absence of both cervix and uterus; Z90.49 Acquired absence of other specified parts of digestive tract; Z68.33 Body mass index [BMI] 33.0-33.9, adult

== ENCOUNTER → 2023-03-14 | Outpatient (CLI) | payer OTHER ==
[~2023-03-14] MED LIST changes: +AZITHROMYCIN500 M2 PO; +CELECOXIB200 MG PO; +COLACE100 MG PO; +HYDROCODONE-AC1 EAC1 PO; +HYDROCODONE-AC1 EACH PO; +ONDANSETRON HYDR4 M1 PO
== END | disposition home or self-care (01) ==
LOC: RAD 14:35 → LAB 14:35
PROVIDERS: ATTEND Internal Medicine
DX: J18.9 Pneumonia, unspecified organism (principal); Z79.01 Long term (current) use of anticoagulants

== ENCOUNTER → 2023-03-22 | Outpatient (CLI) | payer OTHER ==
[2023-03-27 17:06] LABS: 5-HIAA, URINE 2.7 mg/L (Undefined); 5-HIAA, URINE, 24 HR 4.9 mg/24 hr (0.0-14.9)
[2023-03-28 07:57] LABS: URINE VOLUME 1800 mL
== END | disposition home or self-care (01) ==
LOC: LAB 12:17
PROVIDERS: ATTEND Internal Medicine
DX: Z79.01 Long term (current) use of anticoagulants (principal)

== ENCOUNTER 2023-06-15 14:05 | Emergency (ER) | payer OTHER ==
[~2023-06-15] VITALS: Ht 180.3 cm; Wt 108.9 kg
[2023-06-15 19:39] VITALS: BP 107/72
== END 2023-06-15 21:16 | disposition left against medical advice (07) ==
LOC: ED 14:05
DX: S46.912A Strain of unspecified muscle, fascia and tendon at shoulder and upper arm level, left arm, initial encounter (principal); M54.2 Cervicalgia; K21.9 Gastro-esophageal reflux disease without esophagitis; E03.9 Hypothyroidism, unspecified; Z98.890 Other specified postprocedural states; Z90.710 Acquired absence of both cervix and uterus; Z95.5 Presence of coronary angioplasty implant and graft; Z90.49 Acquired absence of other specified parts of digestive tract; V89.2XXA Person injured in unspecified motor-vehicle accident, traffic, initial encounter; Y93.89 Activity, other specified; Y92.410 Unspecified street and highway as the place of occurrence of the external cause; Y99.8 Other external cause status

== ENCOUNTER → 2023-07-23 | Outpatient (CLI) | payer OTHER | END | disposition home or self-care (01) | LOC: CT 00:31 | PROVIDERS: ATTEND Specialist | DX: J34.2 Deviated nasal septum (principal); J32.9 Chronic sinusitis, unspecified ==

== ENCOUNTER → 2023-08-12 | Outpatient (CLI) | payer OTHER ==
[2023-08-12 15:16] LABS: BASO % 0.7 % (0.0-1.0); EOS # 0.1 10*3/uL (0.0-0.4); EOS % 2.4 % (1.0-4.0); HEMATOCRIT 45.5 % (37.0-47.0); LYMPH # 1.4 10*3/uL (1.3-4.4); LYMPH % 32.5 % (27.0-41.0); MEAN CELL VOLUME 92.7 fl (81.0-99.0); MEAN CORPUSCULAR HGB 30.1 pg (27.0-31.0); MEAN CORPUSCULAR HGB CONC 32.5 g/dl (33.0-37.0); MEAN PLATELET VOLUME 9.6 fl (9.6-12.3); MONO # 0.6 10*3/uL (0.1-1.0); MONO % 15.3 % (3.0-9.0); NEUT # 2.1 10*3/uL (2.3-7.9); NEUT % 48.9 % (47.0-73.0); PLATELET COUNT AUTOMATED 275 10*3/uL (130-400); RED BLOOD COUNT 4.91 10*6/uL (4.10-5.10); RED CELL DISTRI WIDTH 12.4 % (0-14.5); WHITE BLOOD COUNT 4.2 10*3/uL (4.8-10.8)
[2023-08-12 16:28] LABS: ALKALINE PHOSPHATASE 78 U/L (46-116); BUN 16 mg/dl (9-23); CHLORIDE 105 mmol/L (98-107); CHOLESTEROL 177 mg/dL (<200); FREE T4 1.47 ng/dl (0.89-1.76); LDL CHOLESTEROL 95 mg/dL (9-159); POTASSIUM 3.4 mmol/L (3.4-5.1); SGPT/ALT 12 U/L (5-49); TOTAL PROTEIN 7.5 gm/dL (6.0-8.0); TRIGLYCERIDES 78 mg/dl (<150)
[2023-08-12 18:25] LABS: VITAMIN D, 25-HYDROXY 27.2 ng/mL (30-100)
== END | disposition home or self-care (01) ==
LOC: LAB 14:56
PROVIDERS: ATTEND Internal Medicine
DX: I10 Essential (primary) hypertension (principal); E55.9 Vitamin D deficiency, unspecified; E03.9 Hypothyroidism, unspecified; Z13.0 Encounter for screening for diseases of the blood and blood-forming organs and certain disorders involving the immune mechanism; Z13.1 Encounter for screening for diabetes mellitus; Z13.21 Encounter for screening for nutritional disorder; Z13.220 Encounter for screening for lipoid disorders; Z13.29 Encounter for screening for other suspected endocrine disorder; Z13.228 Encounter for screening for other metabolic disorders; Z13.6 Encounter for screening for cardiovascular disorders; Z13.89 Encounter for screening for other disorder; Z13.9 Encounter for screening, unspecified

== ENCOUNTER → 2023-11-04 | Outpatient (CLI) | payer OTHER | END | disposition home or self-care (01) | LOC: MRI 07:52 | PROVIDERS: ATTEND Internal Medicine | DX: M48.07 Spinal stenosis, lumbosacral region (principal); M47.816 Spondylosis without myelopathy or radiculopathy, lumbar region ==

== ENCOUNTER → 2024-02-10 | Outpatient (CLI) | payer OTHER | END | disposition home or self-care (01) | LOC: CT 09:00 | PROVIDERS: ATTEND Internal Medicine | DX: R10.9 Unspecified abdominal pain (principal); Z90.49 Acquired absence of other specified parts of digestive tract ==

== ENCOUNTER → 2024-03-05 | Outpatient (CLI) | payer OTHER | END | disposition home or self-care (01) | LOC: CARD 02-06 08:00 | PROVIDERS: ATTEND Internal Medicine | DX: R00.2 Palpitations (principal) ==

== ENCOUNTER → 2024-03-18 | Outpatient (CLI) | payer OTHER | END | disposition home or self-care (01) | LOC: MAMMO 02-24 11:00 | PROVIDERS: ATTEND Internal Medicine | DX: Z12.31 Encounter for screening mammogram for malignant neoplasm of breast (principal) ==

== ENCOUNTER → 2024-10-07 | Outpatient (CLI) | payer SELFPAY ==
[2024-10-07 13:50] LABS: BASO % 0.7 % (0.0-1.0); EOS # 0.1 10*3/uL (0.0-0.4); EOS % 2.4 % (1.0-4.0); HEMATOCRIT 45.7 % (37.0-47.0); MEAN CELL VOLUME 91.8 fl (81.0-99.0); MEAN CORPUSCULAR HGB 30.3 pg (27.0-31.0); MEAN PLATELET VOLUME 9.8 fl (9.6-12.3); MONO # 0.5 10*3/uL (0.1-1.0); MONO % 7.7 % (3.0-9.0); NEUT # 3.4 10*3/uL (2.3-7.9); NEUT % 56.6 % (47.0-73.0); PLATELET COUNT AUTOMATED 328 10*3/uL (130-400); RED BLOOD COUNT 4.98 10*6/uL (4.10-5.10); RED CELL DISTRI WIDTH 12.4 % (0-14.5)
[2024-10-07 14:28] LABS: ALKALINE PHOSPHATASE 80 U/L (46-116); BUN 15 mg/dl (9-23); CHLORIDE 105 mmol/L (98-107); CHOLESTEROL 207 mg/dL (<200); FREE T4 1.46 ng/dl (0.89-1.76); LDL CHOLESTEROL 123 mg/dL (9-159); POTASSIUM 3.7 mmol/L (3.4-5.1); SGPT/ALT 14 U/L (5-49); TOTAL PROTEIN 8.1 gm/dL (6.0-8.0); TRIGLYCERIDES 98 mg/dl (<150)
[2024-10-07 14:29] LABS: VITAMIN D, 25-HYDROXY 30.1 ng/mL (30-100)
[2024-10-08 10:06] LABS: MEASLES (RUBEOLA) Abs, IgG >300.0 AU/mL (Immune >16.4); MUMPS ANTIBODIES, IGG 52.9 AU/mL (Immune >10.9); VARICELLA ZOSTER (VZV) IgG Reactive (Non Reactive)
== END | disposition home or self-care (01) ==
LOC: LAB 13:14
PROVIDERS: ATTEND Internal Medicine
DX: I10 Essential (primary) hypertension (principal); M48.062 Spinal stenosis, lumbar region with neurogenic claudication; E55.9 Vitamin D deficiency, unspecified; R53.83 Other fatigue; K29.70 Gastritis, unspecified, without bleeding; R73.9 Hyperglycemia, unspecified; E03.9 Hypothyroidism, unspecified; M79.10 Myalgia, unspecified site; M15.0 Primary generalized (osteo)arthritis; M47.816 Spondylosis without myelopathy or radiculopathy, lumbar region; E53.9 Vitamin B deficiency, unspecified

== ENCOUNTER 2025-02-13 22:27 | Emergency (ER) | payer SELFPAY ==
[~2025-02-13] VITALS: Ht 180.3 cm; Wt 108.9 kg
[2025-02-13 22:38] VITALS: BP 147/84
[2025-02-13] MEDS ORDERED: NAPROSYN500 MG PO (23:48)
== END 2025-02-14 00:04 | disposition home or self-care (01) ==
LOC: ED 22:27
DX: M25.552 Pain in left hip (principal); E03.9 Hypothyroidism, unspecified; K21.9 Gastro-esophageal reflux disease without esophagitis; Z79.899 Other long term (current) drug therapy; Z90.710 Acquired absence of both cervix and uterus; Z98.890 Other specified postprocedural states

== ENCOUNTER 2025-04-19 17:22 | Emergency (ER) | payer SELFPAY ==
[~2025-04-19] VITALS: Ht 180.3 cm; Wt 108.9 kg
[2025-04-19] MEDS ORDERED: Ondansetron Hydrochloride 4 MG/2 ML VIAL IV ONE (18:40)
[2025-04-19] MEDS ORDERED: SODIUM CHLORIDE 0.9% 1,000 ML IV ONE (18:40)
[2025-04-19 18:44] LABS: BILIRUBIN Negative (Negative); BLOOD Negative (Negative); CLARITY Clear (Clear); COLOR Yellow (Yellow); KETONE Trace (Negative); LEUKO ESTERASE 1+ (Negative); NITRITE Negative (Negative); PH 5.5 (4.5-8.0); SPECIFIC GRAVITY >= 1.030 (1.001-1.030); UROBILINOGEN 1.0 E.U./dl (0.0-1.0)
[2025-04-19 18:48] LABS: BASO # 0.1 10*3/uL (0.0-0.1); BASO % 0.8 % (0.0-1.0); EOS # 0.2 10*3/uL (0.0-0.4); EOS % 2.5 % (1.0-4.0); MEAN CELL VOLUME 92.3 fl (81.0-99.0); MEAN CORPUSCULAR HGB 31.0 pg (27.0-31.0); MEAN PLATELET VOLUME 9.8 fl (9.6-12.3); MONO # 0.7 10*3/uL (0.1-1.0); MONO % 10.2 % (3.0-9.0); NEUT # 4.3 10*3/uL (2.3-7.9); NEUT % 58.9 % (47.0-73.0); NUCLEATED RED BLOOD CELL 0.0 % (0.0-0.0); NUCLEATED RED BLOOD CELL 0.0 10*3/uL (0.0-0.0); PLATELET COUNT AUTOMATED 295 10*3/uL (130-400); RED CELL DISTRI WIDTH 11.9 % (0-14.5)
[2025-04-19 18:56] LABS: BACTERIA 1+; EPITHELIAL CELLS 21-30; MUCOUS TRACE; RBC 0-2 rbc/hpf (0-2)
[2025-04-19 19:11] LABS: BUN 21 mg/dl (9-23)
[2025-04-19 19:59] VITALS: BP 115/62
[2025-04-19] MEDS ORDERED: CIPRO500 MG PO (20:59)
[2025-04-19] MEDS ORDERED: Ciprofloxacin Hydrochloride 500 MG TAB PO ONE (21:00)
== END 2025-04-19 21:20 | disposition home or self-care (01) ==
LOC: ED 17:22
PROVIDERS: Nurse Practitioner Family
DX: N39.0 Urinary tract infection, site not specified (principal); Z79.899 Other long term (current) drug therapy; Z90.49 Acquired absence of other specified parts of digestive tract; Z90.710 Acquired absence of both cervix and uterus; Z98.890 Other specified postprocedural states